=== PATIENT | female | born 1980 ===

== ENCOUNTER → 2020-12-11 08:31 | Outpatient (BNVA) | payer OTHER, SELFPAY | PROVIDERS: PCP Internal Medicine; Visit Provider Physician Assistant | DX: E66.01 Morbid (severe) obesity due to excess calories (principal); Z68.41 Body mass index [BMI] 40.0-44.9, adult; I10 Essential (primary) hypertension; Z71.3 Dietary counseling and surveillance | CPT/HCPCS: 99202 ==

== ENCOUNTER → 2020-12-13 15:49 | Outpatient (BNVA) | payer OTHER, SELFPAY | PROVIDERS: PCP Internal Medicine; Referring Provider Internal Medicine; Visit Provider Physician Assistant | DX: E66.01 Morbid (severe) obesity due to excess calories (principal); I10 Essential (primary) hypertension; Z68.41 Body mass index [BMI] 40.0-44.9, adult | CPT/HCPCS: 99212 ==

== ENCOUNTER 2020-12-18 10:59 | Outpatient (REF) | payer OTHER, SELFPAY ==
[2020-12-18 11:53] LABS: MANUAL DIFF FLAG NO
[2020-12-18 12:04] LABS: Basophils Percent Auto 0.7 % (0-2); Eosinophils Absolute Auto 0.2 X10*3/uL (0.0-0.4); Eosinophils Percent Auto 3.6 % (0-4); Hemoglobin 12.6 g/dl (12.0-16.0); Imm Gran Abs Auto 0.02 X10*3/uL (0.00-0.03); Imm Gran Pct Auto 0.3 % (0.0-0.4); Lymphocytes Absolute Auto 1.5 X10*3/uL (1.2-4.9); Mean Corpuscular HGB Conc 32.3 g/dl (31.0-35.0); Mean Corpuscular Hemoglobin 27.9 pg (27.0-33.0); Mean Corpuscular Volume 86.5 fL (80-98); Mean Platelet Volume 9.7 fL (9.4-12.3); Monocytes Absolute Auto 0.6 X10*3/uL (0.1-1.2); Monocytes Percent Auto 10.2 % (2-11); Neutrophils Absolute Auto 3.4 X10*3/uL (2.0-8.3); Neutrophils Percent Auto 59.2 % (45-73); Platelet Count 231 X10*3/uL (160-400); Red Blood Count 4.51 X10*6/uL (4.20-5.50); Red Cell Distribution Width 13.9 % (11.0-16.0); White Blood Count 5.8 X10*3/uL (4.8-10.8)
[2020-12-18 12:16] LABS: Estimated Average Glucose 111 mg/dL; Hemoglobin A1c % 5.5 %
[2020-12-18 12:39] LABS: Ferritin 20 ng/mL (10-250); TSH reflex Free T4 1.47 uIU/mL (0.32-4.0); Vitamin D 25-OH Total 23.5 ng/mL (>30)
[2020-12-18 12:41] LABS: Alanine Aminotransferase 21 U/L (0-31); Albumin Level 4.4 g/dL (3.5-5.0); Alkaline Phosphatase 73 U/L (39-117); Anion Gap 11 (12-20); Aspartate Amino Transferase 21 U/L (5-31); Bilirubin Total 0.5 mg/dL (0.0-1.0); Blood Urea Nitrogen 20 mg/dL (9-16); C Reactive Protein 1.15 mg/dL (< or = 0.50); Calcium 9.1 mg/dL (8.4-10.2); Carbon Dioxide 24 mmol/L (22-29); Chloride 107 mmol/L (96-108); Cholesterol 184 mg/dL; Estimated Glomerular Filt Rate > 60; Glucose Fasting 77 mg/dL (60-99); HDL Cholesterol 42 mg/dL; Iron 58 mcg/dL (30-160); LDL Cholesterol Calculated 128 mg/dl; Percent Iron Saturation 15 % (15-50); Potassium 4.3 mmol/L (3.3-5.1); Sodium 138 mmol/L (135-145); Total Iron Binding Capacity 398 mcg/dL (228-428); Total Protein 7.4 g/dL (6.5-8.0); Triglycerides 71 mg/dL; Unsaturated Iron Binding 340 ug/dL
[2020-12-18 13:00] LABS: Folate 18.6 ng/mL (> or = 4.0); Vitamin B12 1751 pg/mL (200-900)
[2020-12-19 09:47] LABS: Insulin Level Total 5.4 uIU/mL
[2020-12-19 16:41] LABS: Calcium (PTHI) 9.2 mg/dL (8.6-10.2); PTHI 86 pg/mL (14-64)
[2020-12-20 16:52] LABS: Zinc 92 mcg/dL (60-130)
[2020-12-23 09:26] LABS: Vitamin A 36 mcg/dL (38-98)
[2020-12-23 10:41] LABS: Vitamin B1 7 nmol/L (8-30)
== END 2020-12-18 11:00 | disposition home or self-care (01) ==
LOC: HO.LAB 10:59
PROVIDERS: PCP Internal Medicine; Visit Provider Physician Assistant
DX: E66.01 Morbid (severe) obesity due to excess calories (principal); Z68.41 Body mass index [BMI] 40.0-44.9, adult; I10 Essential (primary) hypertension; R06.02 Shortness of breath
CPT/HCPCS: 36415; 80053; 80061; 82306; 82607; 82728; 82746; 83036; 83525; 83540; 83970; 84425; 84443; 84590; 84630; 85025; 86140

== ENCOUNTER → 2020-12-19 08:16 | Outpatient (BNVA) | payer OTHER, SELFPAY | PROVIDERS: PCP Internal Medicine; Visit Provider Surgery ==

== ENCOUNTER 2020-12-20 09:22 | Outpatient (REF) | payer OTHER, SELFPAY ==
--- NOTE | ~2020-12-20 | XR_ITS ---
EXAMINATION: XR CHEST CLINICAL INFORMATION: Morbid obesity COMPARISON: None TECHNIQUE: 2 views of the chest were obtained. FINDINGS: No significant abnormality is noted involving the heart, lungs, mediastinum, bony thorax or soft tissues. XR/XR chest 2V IMPRESSION: No acute disease.
--- NOTE | 2020-12-20 09:29 | ECG_ITS ---
Test Reason : MORBID OBESITY Blood Pressure : / mmHG Vent. Rate : 081 BPM Atrial Rate : 081 BPM P-R Int : 148 ms QRS Dur : 090 ms QT Int : 390 ms P-R-T Axes : 055 003 014 degrees QTc Int : 453 ms Normal sinus rhythm Normal ECG No previous ECGs available Referred By: Lesvia Worley Electronically Signed By:CHANDU RUIZ
[2020-12-20 10:24] LABS: Estimated Average Glucose 111 mg/dL; Hemoglobin A1c % 5.5 %
[2020-12-20 10:51] LABS: Alanine Aminotransferase 24 U/L (0-31); Albumin Level 4.6 g/dL (3.5-5.0); Alkaline Phosphatase 75 U/L (39-117); Anion Gap 14 (12-20); Aspartate Amino Transferase 26 U/L (5-31); Bilirubin Total 0.5 mg/dL (0.0-1.0); Blood Urea Nitrogen 16 mg/dL (9-16); C Reactive Protein 1.43 mg/dL (< or = 0.50); Calcium 9.7 mg/dL (8.4-10.2); Carbon Dioxide 23 mmol/L (22-29); Chloride 108 mmol/L (96-108); Cholesterol 188 mg/dL; Estimated Glomerular Filt Rate > 60; Glucose Fasting 85 mg/dL (60-99); HDL Cholesterol 42 mg/dL; Iron 44 mcg/dL (30-160); LDL Cholesterol Calculated 130 mg/dl; Percent Iron Saturation 11 % (15-50); Sodium 140 mmol/L (135-145); Total Iron Binding Capacity 394 mcg/dL (228-428); Total Protein 7.6 g/dL (6.5-8.0); Triglycerides 81 mg/dL; Unsaturated Iron Binding 350 ug/dL
[2020-12-20 11:13] LABS: Ferritin 21 ng/mL (10-250); TSH reflex Free T4 1.43 uIU/mL (0.32-4.0); Vitamin D 25-OH Total 24.1 ng/mL (>30)
[2020-12-20 11:41] LABS: Folate 17.7 ng/mL (> or = 4.0); Vitamin B12 > 2000 pg/mL (200-900)
[2020-12-21 17:57] LABS: Calcium (PTHI) 9.5 mg/dL (8.6-10.2); PTHI 84 pg/mL (14-64)
== END 2020-12-20 09:23 | disposition home or self-care (01) ==
LOC: HO.LAB 09:22
PROVIDERS: PCP Internal Medicine; Visit Provider Physician Assistant
DX: E66.01 Morbid (severe) obesity due to excess calories (principal); R06.02 Shortness of breath; I10 Essential (primary) hypertension
CPT/HCPCS: 36415; 71046; 80053; 80061; 82306; 82607; 82728; 82746; 83036; 83525; 83540; 83970; 84443; 86140; 93005

== ENCOUNTER 2020-12-24 15:00 | Outpatient (REF) | payer OTHER, SELFPAY ==
[2020-12-25 14:11] LABS: H Pylori Breath Test NOT DETECTED (NOT DETECTED)
== END 2020-12-24 15:01 | disposition home or self-care (01) ==
LOC: HO.LNP 15:00
PROVIDERS: Physician Assistant; PCP Internal Medicine; Visit Provider Surgery
DX: I10 Essential (primary) hypertension (principal); R06.02 Shortness of breath; E66.01 Morbid (severe) obesity due to excess calories; Z68.41 Body mass index [BMI] 40.0-44.9, adult
CPT/HCPCS: 83013; 99211

== ENCOUNTER → 2021-01-09 08:26 | Outpatient (BNVA) | payer OTHER, SELFPAY | PROVIDERS: PCP Internal Medicine; Visit Provider Surgery ==

== ENCOUNTER 2021-01-10 08:09 | Outpatient (REF) | payer OTHER, SELFPAY ==
--- NOTE | ~2021-01-10 | FL_ITS ---
EXAMINATION: XR GI SERIES CLINICAL INFORMATION: Morbid obesity. COMPARISON: None TECHNIQUE: Air-contrast upper GI examination. FINDINGS: There is normal elevation of the soft palate while saying candy. There is normal apposition of the vocal cords while saying E. Patient swallowed thin and thick barium without difficulty. Half-inch diameter barium tablet passed readily. There is no evidence of nasopharyngeal reflux or tracheal aspiration. No Zenker's diverticulum. There is normal esophageal motility. No persistent esophageal stricture was identified. No mucosal abnormality was seen. There is a small hiatal hernia present. There was mild gastroesophageal reflux within the distal third of the esophagus with water siphon test which cleared rapidly. The stomach demonstrates normal distensibility without focal mass or ulceration. There was no delay in gastric emptying. The duodenal bulb and sweep appeared unremarkable. FLUOROSCOPY TIME: 2.2 minutes DOSE AREA PRODUCT: 19.937 Gy-cm2 (fregoso-centimeter squared) FL/FL upper GI series IMPRESSION: Mild gastroesophageal reflux within the distal third of the esophagus. Small hiatal hernia.
--- NOTE | ~2021-01-10 | US_ITS ---
EXAMINATION: US COMPLETE ABDOMEN WITH LIVER ELASTOGRAPHY CLINICAL INFORMATION: Morbid obesity COMPARISON: None. TECHNIQUE: Real-time imaging of the abdominal viscera. Noninvasive ultrasound liver fibrosis assessment is performed using Shannon ElastPQ point quantification shear wave elastography (pSWE) with a C5-2 MHz transducer. Multiple elastography samples are obtained. FINDINGS: PANCREAS: Normal. The visualized pancreatic head and body are normal in appearance. The remainder of the pancreas is obscured from visualization by the overlying bowel gas. ABDOMINAL AORTA: The proximal, middle, and distal aortic segments are normal in caliber. INFERIOR VENA CAVA: Visualized portions are normal. LIVER: Normal. The liver demonstrates normal size, contour and echogenicity. No focal lesion or intrahepatic biliary duct dilatation. The right lobe measures 16.3 cm in length. The left lobe measures 9.5 cm in length. Portal flow is hepatopedal Shear wave liver elastography median stiffness is 1.35 m/s (reference: normal median stiffness is 1.3 m/s or less). IQR/median stiffness to assess sampling precision is 0.10 (reference: good quality data set is IQR/median stiffness of 0.15 or less). GALLBLADDER: The gallbladder is physiologically distended. Gallbladder sludge present. No gallbladder wall thickening or pericholecystic fluid is identified. COMMON BILE DUCT: Normal in caliber measuring 0.3 cm in diameter. RIGHT KIDNEY: Normal. No hydronephrosis. No renal calculi or focal parenchymal lesions. The kidney measures 11.9 cm in maximum dimension. LEFT KIDNEY: Normal. No hydronephrosis. No renal calculi or focal parenchymal lesions. The kidney measures 11.2 cm in maximum dimension. SPLEEN: Normal. The spleen measures 11.9 cm in maximum dimension. FREE FLUID: None. US/US abdomen comp w elastography IMPRESSION: 1. Gallbladder sludge without evidence of acute cholecystitis. 2. Liver elastography: In the absence of other known clinical signs, measurements rule out compensated advanced chronic liver disease. If there are known clinical signs, further testing may be needed for confirmation. REFERENCE: Society of Radiologists in Ultrasound Liver Stiffness Thresholds (2019): LIVER STIFFNESS THRESHOLDS: *Liver Stiffness equal or less than 1.3 m/s: High probability of being normal. *Liver Stiffness less than 1.7 m/s: In the absence of other known clinical signs, rules out compensated advanced chronic liver disease. *Liver Stiffness 1.7-2.1 m/s: Suggestive of compensated advanced chronic liver disease but need further test for confirmation. *Liver Stiffness over 2.1 m/s: Rules in compensated advanced chronic liver disease. *Liver Stiffness over 2.4 m/s: Suggestive of clinically significant portal hypertension. QUALITY OF DATA SET: *IQR/Median value equal or less than 0.15 implies a quality data set. *IQR/Median value over 0.15 implies a poor quality data set. SIGNIFICANT CHANGE FROM PRIOR EXAM: Significant change if liver stiffness measurement is 10% or greater from prior exam. OTHER CONSIDERATIONS: The stage of liver fibrosis may be overestimated in the setting of acute hepatitis, liver inflammation, elevated liver function tests, hepatic vascular congestion, obstructive cholestasis, non-fasting state, and infiltrative diseases such as amyloidosis and lymphoma. In some patients with NAFLD, the liver stiffness thresholds for compensated advanced chronic liver disease may be lower. In causes other than viral hepatitis and NAFLD, liver stiffness thresholds are not well established.
== END 2021-01-10 08:10 | disposition home or self-care (01) ==
LOC: HO.US 08:09
PROVIDERS: PCP Internal Medicine; Visit Provider Surgery
DX: Z01.818 Encounter for other preprocedural examination (principal); E66.01 Morbid (severe) obesity due to excess calories; Z68.41 Body mass index [BMI] 40.0-44.9, adult; K21.9 Gastro-esophageal reflux disease without esophagitis; R06.02 Shortness of breath
CPT/HCPCS: 74240; 76705; 76981

== ENCOUNTER → 2021-01-16 08:24 | Outpatient (BNVA) | payer OTHER, SELFPAY | PROVIDERS: PCP Internal Medicine; Visit Provider Dietitian, Registered | DX: E66.9 Obesity, unspecified (principal); Z68.41 Body mass index [BMI] 40.0-44.9, adult | CPT/HCPCS: 97802 ==

== ENCOUNTER → 2021-01-24 10:22 | Outpatient (BNVA) | payer OTHER, SELFPAY | PROVIDERS: PCP Internal Medicine; Referring Provider Internal Medicine; Visit Provider Physician Assistant ==

== ENCOUNTER → 2021-01-31 07:53 | Outpatient (BNVA) | payer OTHER, SELFPAY | PROVIDERS: PCP Internal Medicine; Visit Provider Surgery ==

== ENCOUNTER → 2021-03-06 07:49 | Outpatient (BNVA) | payer OTHER, SELFPAY | PROVIDERS: PCP Internal Medicine; Visit Provider Surgery ==

== ENCOUNTER → 2021-03-08 08:55 | Outpatient (BNVA) | payer OTHER, SELFPAY | PROVIDERS: PCP Internal Medicine; Referring Provider Internal Medicine; Visit Provider Physician Assistant ==

== ENCOUNTER 2021-03-13 19:43 | Inpatient (IN) | payer OTHER, SELFPAY ==
[2021-02-27 11:23] VITALS: BMI 39.3
[2021-03-08 11:49] LABS: MANUAL DIFF FLAG NO
[2021-03-08 11:54] LABS: Basophils Percent Auto 0.7 % (0-2); Eosinophils Absolute Auto 0.3 X10*3/uL (0.0-0.4); Eosinophils Percent Auto 4.3 % (0-4); Hematocrit 40.9 % (37-47); Hemoglobin 13.3 g/dl (12.0-16.0); Imm Gran Abs Auto 0.01 X10*3/uL (0.00-0.03); Imm Gran Pct Auto 0.2 % (0.0-0.4); Lymphocytes Absolute Auto 1.2 X10*3/uL (1.2-4.9); Lymphocytes Percent Auto 19.5 % (20-40); Mean Corpuscular HGB Conc 32.5 g/dl (31.0-35.0); Mean Corpuscular Hemoglobin 28.1 pg (27.0-33.0); Mean Corpuscular Volume 86.5 fL (80-98); Mean Platelet Volume 9.9 fL (9.4-12.3); Monocytes Absolute Auto 0.6 X10*3/uL (0.1-1.2); Neutrophils Absolute Auto 4.1 X10*3/uL (2.0-8.3); Neutrophils Percent Auto 66.3 % (45-73); Platelet Count 224 X10*3/uL (160-400); Red Blood Count 4.73 X10*6/uL (4.20-5.50); Red Cell Distribution Width 14.5 % (11.0-16.0); White Blood Count 6.1 X10*3/uL (4.8-10.8)
[2021-03-08 11:59] LABS: INTERNATIONAL NORM RATIO 1.1 (0.9-1.1); Prothrombin Time 12.4 SEC (9.9-13.0)
[2021-03-08 12:01] LABS: Partial Thromboplastin Time 35.4 SEC (24.1-38.0)
[2021-03-08 12:12] LABS: Estimated Average Glucose 105 mg/dL; Hemoglobin A1c % 5.3 %
[2021-03-08 12:38] LABS: TSH reflex Free T4 1.33 uIU/mL (0.32-4.0)
[2021-03-08 12:56] LABS: Alanine Aminotransferase 13 U/L (0-31); Albumin Level 4.3 g/dL (3.5-5.0); Alkaline Phosphatase 62 U/L (39-117); Anion Gap 15 (12-20); Aspartate Amino Transferase 17 U/L (5-31); Bilirubin Total 0.5 mg/dL (0.0-1.0); Blood Urea Nitrogen 13 mg/dL (9-16); C Reactive Protein 0.68 mg/dL (< or = 0.50); Calcium 9.7 mg/dL (8.4-10.2); Carbon Dioxide 20 mmol/L (22-29); Chloride 109 mmol/L (96-108); Cholesterol 169 mg/dL; Estimated Glomerular Filt Rate > 60; Glucose Random 93 mg/dL (60-115); HDL Cholesterol 42 mg/dL; LDL Cholesterol Calculated 113 mg/dl; Potassium 4.5 mmol/L (3.3-5.1); Sodium 139 mmol/L (135-145); Total Protein 7.2 g/dL (6.5-8.0); Triglycerides 73 mg/dL
[2021-03-09 10:02] LABS: Insulin Level Total 6.8 uIU/mL
--- NOTE | 2021-03-13 19:41 | MHC.SHP ---
Pre-Procedural Eval Section A Date of Service: 03/13/21 The patient is an INPATIENT: Yes Changes since office visit: No Cold of Flu in the past 2 weeks, No New Medical Problems, No Changes in Medication and No Patient answered all questions Section B Chief Complaint: Morbid Severe Obesity Relevant Family History (Specify if Yes): No Relevant Social History: None Present Medications: see Short Stay Collaborative assessment Medical History: No relevant PMH History of Previous Operations: No relevant previous surgery Allergies: Allergies Allergy/AdvReac Type Severity Reaction Status Date / Time No Known Allergies Allergy Verified 12/19/20 14:50 Review of Systems Sugical H&P ROS: Negative: Constitution, Cardiovascular, Respiratory, Neurological, Psychiatric, Hem-Onc, Allergic/Immunologic, Gastrointestinal, Genitourinary, Musculoskeletal, Integumentary, Endocrine and Eyes/Ears/Nose/Throat Exam Surgical H&P Exam: Normal: HEENT, Normal: Heart, Normal: Lungs, Normal: Extremities, Normal: Abdomen, Normal: Skin and Normal: Neurological Plan I have reviewed the history and physical and performed a pertinent physical examination on my patient. No changes have occurred unless specified.
[2021-03-14] VITALS (11 sets, daily range): BP systolic 123–159; BP diastolic 81–105; PULSE 70–113; RESP 14–18; TEMP 35.9–36.7; O2SAT 96–100
[2021-03-14 12:06] LABS: COVID-19 Test Negative (Negative)
--- NOTE | 2021-03-14 12:23 | P.CONAN_ITS ---
HPI - Anesthesia Eval Consult details Narrative: 40 yo female patient for sleeve gastrectomy PMFSH Active Problems Active Problems: All Active Problems (Updated 02/27/21 @ 11:27 by Sagrario Bloom) Adjustment disorder, unspecified (Acute) Shortness of breath (Acute) Back pain (Acute) Morbid obesity (Acute) BMI 40.0-44.9, adult (Acute) Hypertension (Acute) Past Medical History Medical History (Updated 03/14/21 @ 13:38 by oDnnell Acosta MD) Arthritis Back pain BMI 40.0-44.9, adult Diaphragmatic hernia GERD (gastroesophageal reflux disease) Hypertension Morbid obesity Shortness of breath Family History Family History Mother Diabetes Hypertension Pulmonary emphysema Father Thyroid condition Hypertension Sister No problems noted. Sister No problems noted. Brother No problems noted. Son No problems noted. Son No problems noted. Family history of problems with anesthesia: No Surgical History Surgical History Hx of section Hx of tubal ligation History of Problems with Anesthesia: No Social History Social History Are you a primary transitional care manager to a significant other at home: No Do you presently have visiting nurse or other home services: No Alcohol intake: never Patient Tobacco Use Status: Never used Tobacco Use of substances other than those prescribed or required for medical reasons: No Have you been hit, kicked, punched, or otherwise hurt by someone within the past year? If so, by whom?: No Are you DNR?: No Advance Directives: No Advance Directives Information Provided: Yes (does not have official HCP) Advance Directives on File: No Recently lost weight without trying: No Eating poorly because of decreased appetite: No Nutrition Risks: No Nutritional Risk Patient : No FDLMP: 02/06/21 : No Poor oral hygiene: No Meds Allergies Allergy/AdvReac Type Severity Reaction Status Date / Time No Known Allergies Allergy Verified 03/14/21 11:40 Active Medications: Current Medications Generic Name Dose Route Start Last Admin Trade Name Freq PRN Reason Stop Dose Admin Lactated Ringer's 1,000 mls @ 100 mls/hr 03/14/21 12:30 Lr IVCONT .Q10H RO Acetaminophen 1,000 mg in 100 mls @ 400 mls/hr 03/14/21 12:21 Ofirmev IV 03/14/21 12:35 PREOP ONE Home Medications Medication Instructions Recorded Confirmed Last Taken Type ergocalciferol (vitamin D2) 1,250 1,250 mcg PO QWEEK 12/11/20 03/06/21 Unknown History mcg (50,000 unit) capsule mecobalamin (vitamin B12) 5,000 5,000 mcg PO DAILY 12/11/20 03/06/21 Unknown History mcg lozenge Exam Exam Date and Time: March 14, 2021 1223 Height,Weight and Vital Signs: Height 4 ft 11.5 in Weight 89.811 kg Vital Signs Temp Pulse Resp BP Pulse Ox 03/14/21 12:18 97.9 F 77 16 137/90 H 99 Pertinent Lab Results Pertinent Lab Results: Laboratory Tests 03/08/21 03/08/21 03/08/21 11:17 11:17 11:17 WBC 6.1 RBC 4.73 Hgb 13.3 Hct 40.9 MCV 86.5 MCH 28.1 MCHC 32.5 RDW 14.5 Plt Count 224 MPV 9.9 Immature Gran % (Auto) 0.2 Neut % (Auto) 66.3 Lymph % (Auto) 19.5 L Alexander % (Auto) 9.0 Eos % (Auto) 4.3 H Baso % (Auto) 0.7 Lymph # (Auto) 1.2 Alexander # (Auto) 0.6 Eos # (Auto) 0.3 Baso # (Auto) 0.0 Abs Immat Gran (auto) 0.01 Absolute Neuts (auto) 4.1 Absolute Nucleated RBC 0.000 Nucleated RBC % (auto) 0.0 PT 12.4 INR 1.1 APTT 35.4 Sodium 139 Potassium 4.5 Chloride 109 H Carbon Dioxide 20 L Anion Gap 15 BUN 13 Creatinine 0.73 Estim Creat Clear Calc 100.0 Estimated GFR > 60 Random Glucose 93 Estimat Average Glucose Hemoglobin A1c % Total Insulin Calcium 9.7 Total Bilirubin 0.5 AST 17 ALT 13 Alkaline Phosphatase 62 C-Reactive Protein 0.68 H Total Protein 7.2 Albumin 4.3 Triglycerides 73 Cholesterol 169 LDL Cholesterol, Calc 113 HDL Cholesterol 42 TSH 1.33 COVID-19 (REGINO) COVID-19 Clin Com Blood Type Antibody Screen 03/08/21 03/08/21 03/08/21 11:17 11:17 11:17 WBC RBC Hgb Hct MCV MCH MCHC RDW Plt Count MPV Immature Gran % (Auto) Neut % (Auto) Lymph % (Auto) Alexander % (Auto) Eos % (Auto) Baso % (Auto) Lymph # (Auto) Alexander # (Auto) Eos # (Auto) Baso # (Auto) Abs Immat Gran (auto) Absolute Neuts (auto) Absolute Nucleated RBC Nucleated RBC % (auto) PT INR APTT Sodium Potassium Chloride Carbon Dioxide Anion Gap BUN Creatinine Estim Creat Clear Calc Estimated GFR Random Glucose Estimat Average Glucose 105 Hemoglobin A1c % 5.3 Total Insulin 6.8 Calcium Total Bilirubin AST ALT Alkaline Phosphatase C-Reactive Protein Total Protein Albumin Triglycerides Cholesterol LDL Cholesterol, Calc HDL Cholesterol TSH COVID-19 (REGINO) COVIDmParticle Blood Type A Negative Antibody Screen NEGATIVE 03/14/21 11:40 WBC RBC Hgb Hct MCV MCH MCHC RDW Plt Count MPV Immature Gran % (Auto) Neut % (Auto) Lymph % (Auto) Alexander % (Auto) Eos % (Auto) Baso % (Auto) Lymph # (Auto) Alexander # (Auto) Eos # (Auto) Baso # (Auto) Abs Immat Gran (auto) Absolute Neuts (auto) Absolute Nucleated RBC Nucleated RBC % (auto) PT INR APTT Sodium Potassium Chloride Carbon Dioxide Anion Gap BUN Creatinine Estim Creat Clear Calc Estimated GFR Random Glucose Estimat Average Glucose Hemoglobin A1c % Total Insulin Calcium Total Bilirubin AST ALT Alkaline Phosphatase C-Reactive Protein Total Protein Albumin Triglycerides Cholesterol LDL Cholesterol, Calc HDL Cholesterol TSH COVID-19 (REGINO) Negative COVID-19 Pump! See Note Blood Type Antibody Screen Airway Mallampati Class: II TM Dist: >3cm Neck ROM: Full Heart: RRR Lungs: CTAB Assessment and Plan Assessment Anesthesia Assessment: Anesthesia Plan Discussed and Chart Reviewed Final Anesthetic Review Family History of Problems with Anesthesia: No History of Problems with Anesthesia: No NPO: Yes ASA Class: III Final Preanesthetic Review: No Changes in Pt Med Stat, Meds/Allgs Chart Reviewed, Consent Obtained/Reviewed and Anes Risks/Benef Reviewed Patient Risk: Intermediate Procedure Risk: Intermediate Assessment/Block/Sedation in SS: Assess/Block/Sedation-SS Anesthetic Plan Anesthetic Plan: GA Disposition: Standard PACU and Inp. Admit - Standard Bed
[2021-03-14] MEDS: Lactated Ringers 1,000 ML 100 ML IVCONT (12:28)
[2021-03-14] MEDS: Lactated Ringers 1,000 ML 999 ML IV (12:28)
--- NOTE | 2021-03-14 13:33 | P.BOP_ITS ---
Brief Operative Note Date of Service: 03/14/21 Pre-op diagnosis: Severe obesity with comorbidities (see below) Post-op diagnosis: same Procedure: INITIAL PATIENT BMI ON PRESENTATION AT OUR OFFICE: 45.3 kg/m2 LAST BMI BEFORE SURGERY: 38.3 kg/m2 COMORBIDITIES: Hypertension, GERD, diaphragmatic hernia, back pain The patient participated in an intensive weekly lifestyle ?intervention and exercise program during which the patient ?has lost between the initial office visit and the last preoperative visit 33lbs, or 14.46% of initial actual body weight. The patient met the BMI-criteria for bariatric surgery based on the BMI on initial presentation. The patient should not be penalized for achieving such weight loss because ?it is not sustainable long-term without surgical intervention and it was achieved in preparation for bariatric surgery ?under my direction and based on my published research ([email or web address] and? [email or web address]-[email or web address]/pdf ) ?that a 10% preoperative weight loss improves long-term weight loss after surgery and reduces perioperative complications.? Insurance carriers such as [facility] have endorsed my recommendations ?and have included in their policies criteria to include a 10% preoperative weight loss requirement. PROCEDURE: Esophago-gastroscopy, laparoscopic sleeve gastrectomy and laparoscopic gastropexy INDICATIONS: This is a 40 year-old female who was electively scheduled for laparoscopic, possibly open sleeve gastrectomy. The risks and complications of the procedure were discussed with the patient in advance, particularly the possibility of ; pulmonary embolism; staple line leak; bleeding; GERD; cardiac, pulmonary, or renal complications; as well as long-term problems such as insufficient weight loss, vitamin deficiency, strictures, or ulcers. The patient understood all the risks, and was in agreement to proceed with surgery. DESCRIPTION OF PROCEDURE: After informed consent was obtained from the patient, the patient was given preoperative antibiotics, and was transferred to the operating room. After successful induction of general anesthesia, pneumatic compressive devices were placed on both lower extremities. An upper endoscopy was performed next. The oropharynx and esophagus appeared to be within normal limits. There was no diaphragmatic hernia present. The stomach was entered. Then after all fluid and air were suctioned and the stomach was fully decompressed, the scope was withdrawn and secured in the mid esophagus. The patient was then prepped and draped in the usual sterile manner, and abdominal access was established at the right upper quadrant with the Ayana technique. A 12 mm blunt port was inserted, and the abdomen was insufflated with CO2 to a pressure of 15 mmHg. Under direct visualization, additional ports were placed, specifically two 5 mm Versi-step ports to the left upper quadrant, and a 5 mm Versi-Step port to the right upper quadrant. 1% lidocaine plain was used to infiltrate all port sites as well as all fascia defects. Following that, the patient was placed in a steep reverse Trendelenburg position. An additional 5 mm port was placed to the right flank for the Mediflex retractor that was used to retract the left lobe of the liver. The gastro-esophageal fat pad was opened with the ultrasonic device (Thunderbeat, Olympus) and the anterior esophagus and hiatus were exposed. The angle of His was opened with the ultrasonic device the fundus of the stomach from any diaphragmatic and splenic attachments. I then opened the gastrocolic ligament between the transverse colon and the greater curvature of the stomach with the ultrasonic device to enter the lesser sac and facilitate the ligation of the short gastric vessels. I started at a mid-point along the greater curvature and using the Thunderbeat, all short gastric vessels were divided all the way to the angle of His until the left rahul was completely dissected at its entirety. I then divided the gastro-colic ligament distally to a distance of about 3-4 cm proximal to the esophagus. The stomach was then divided transversely with one Endo HAROON-45 purple, 2 HAROON-45 orange and three HAROON-60 articulating purple loads using the AEON staplers and loads. Every effort was made that the gastric sleeve had a tubular shape and an even caliber throughout. Once the sleeve resection was completed, the staple line of the gastric sleeve was reinforced with Hemoclips. The resected stomach was retrieved without difficulty from the Ayana port. A gastropexy was then performed in order to prevent postoperative GERD and partial gastric volvulus. Several interrupted 2.0 Surgidac sutures were placed between the sleeve's staple line and the previously divided greater omentum and gastro-colic ligament using the Endo-Stitch device. ?An upper endoscopy was performed. There was no narrowing at the GE junction. The scope was easily advanced all the way to the pylorus which was clearly visualized. There was no narrowing anywhere and the sleeve's caliber was even throughout. The sleeve's staple line was inspected and there was no evidence of ischemia, bleeding or dehiscence. At that point the gastroscope was withdrawn from the patient?s mouth while we were decompressing the bowel and the stomach from any remaining air. I looked into the lesser sac to see how the sleeve was situating and it was situating well. There was no bleeding from the staple line, spleen, or short gastric vessels. The Mediflex retractor was removed, and the undersurface of the liver was inspected and there was no bleeding. The patient was placed in supine position. I closed the fascial defect of the 12 mm port site with a figure of eight #1 Polysorb suture. Then 100 cc 0.25 % Marcaine plain with 10 mg of Dexamethasone were used to infiltrate the fascial closure as well as all skin incisions. At this point, the abdomen was deflated, all ports were removed under direct vision, and no bleeding was noted from any of the port sites. The skin incisions were irrigated with saline and were closed with 4-0 absorbable monofilament sutures. Steri-Strips and OpSites were used to cover all incisions. The patient was extubated and was transferred in stable condition to the recovery room for further care. I was present and performed all werner parts of the procedure. Anastasia Montano was the team assistant. There were no residents to assist with this case. Matthew Acosta MD, PhD, FACS Surgeon: Donnell Acosta MD Anesthesia: GETA, local and other (TAP block) Was an Employee Representative used for this Procedure?: No Employee Representative: Desi Montano Estimated blood loss (mL): 10 IV fluids (mL): 2,200 Urine output (mL): 0 (No Quiñones to record) Pathology: other (Stomach) Condition: stable Disposition: PACU
--- NOTE | 2021-03-14 13:36 | PM.PNGS ---
Subjective Subjective Date of Service: 03/15/21 Interval history: Patient has mild incisional pain but was able to ambulate and use the incentive spirometer. Is toleratin phase 1 bariatric diet. Physical Exam Vital Signs: Vital Signs: Last Vital Signs Temp 97.9 F 03/14/21 12:18 Pulse 77 03/14/21 12:18 Resp 16 03/14/21 12:18 BP 137/90 H 03/14/21 12:18 Pulse Ox 99 03/14/21 12:18 Body Mass Index 39.3 GI: Inspection: Yes normal to inspection, Yes incision (clean, dry and intact) and Yes obesity Extrem: Right lower extremity: normal to inspection (no calf tenderness) Left lower extremity: normal to inspection (no calf tenderness) Procedures Date of Service Date of Service: 03/15/21 Progress Note: A&P Assessment and plan (1) Obesity: Status: Acute Assessment and Plan: s/p laparoscopic sleeve gastrectomy and gastropexy Doing well Check am labs. If OK, will discharge home. (2) BMI 38.0-38.9,adult: Status: Acute (3) Hypertension: Status: Acute (4) GERD (gastroesophageal reflux disease): Status: Acute (5) Diaphragmatic hernia: Status: Acute (6) Back pain: Status: Acute Fall Risk Details Current Medications: Current Medications Generic Name Dose Route Start Last Admin Trade Name Freq PRN Reason Stop Dose Admin Lactated Ringer's 1,000 mls @ 100 mls/hr 03/14/21 12:30 03/14/21 12:28 Lr IVCONT 100 mls/hr .Q10H RO Administration Time Spent With Patient Time: Total time spent is greater than 50% in coordination of care (as documented) at patient's floor/unit and/or counseling patient: Time with patient: less than 15 minutes Quality Stroke Does the patient have a stroke diagnosis?: No VTE Prior VTE?: No VTE Risk Level:: Surgical - moderate VTE Device Contraindication: N/A - Device Ordered VTE Drug Contraindication: Treatment Not Indicated
--- NOTE | 2021-03-14 16:00 | P.DS_ITS ---
DS: Providers Provider Date of Service: 03/15/21 Date of admission: 03/13/21 19:43 Primary care physician: Genie Madison MD DS: Diagnosis Discharge Diagnosis (1) Obesity: Status: Acute (2) BMI 38.0-38.9,adult: Status: Acute (3) Hypertension: Status: Acute (4) GERD (gastroesophageal reflux disease): Status: Acute (5) Diaphragmatic hernia: Status: Acute (6) Back pain: Status: Acute DS: Medications Discharge Medications Home Medications: Home Medications Medication Instructions Recorded Confirmed ergocalciferol (vitamin D2) 1,250 1,250 mcg PO QWEEK 12/11/20 03/06/21 mcg (50,000 unit) capsule mecobalamin (vitamin B12) 5,000 5,000 mcg PO DAILY 12/11/20 03/06/21 mcg lozenge Previous Rx's Medication Instructions Recorded ondansetron HCl 4 mg tablet 4 mg PO Q12H #20 tab 03/06/21 (Zofran) pantoprazole 40 mg tablet,delayed 40 mg PO DAILY #30 tab 03/06/21 release sucralfate 100 mg/mL oral 10 ml PO BID #400 ml 03/06/21 suspension DS: Summary Hospital Course Hospital Course: ADMITTING DIAGNOSIS: morbid obesity, HTN, arthritis DISCHARGE DIAGNOSIS: same, s/p laparoscopic sleeve gastrectomy PAST SURGICAL HISTORY: section, tubal ligation PROCEDURE: upper endoscopy, laparoscopic sleeve gastrectomy DISCHARGE SUMMARY: History of Present Illness: The patient is a 40 year-old woman with a BMI of 44.7 kg/m2 and associated co- morbidities as described above. The patient had extensive work-up,lost 33 lbs preoperatively and was electively scheduled for laparoscopic, possible open sleeve gastrectomy and gastropexy. Risks and complications of the surgery were discussed with the patient in advance, particularly the possibility of , pulmonary embolism, anastomotic leak, bleeding, bowel injury, GERD, cardiac, renal or pulmonary complications. The patient understood all the risks and was in agreement with the surgical plan. Hospital Course: The patient underwent an uneventful laparoscopic sleeve gastrectomy with gastropexy on the day of admission. Postoperatively, the patient was transferred to the surgical floor. The patient received IV Acetaminophen and IV dilaudid for pain control. Patient was started on bariatric phase 1 diet POD #0. On postoperative day one, the patient was feeling well without nausea, vomiting, fevers, or tachycardia. The patient had some mild incisional pain and the abdomen was soft. On the morning of postoperative day one, the patient was continued on 1 ounce of water or ice every half hour. During the day, the patient did fairly well, having some incisional pain, but able to ambulate adequately and to tolerate liquids well. Since the patient is doing well, we decided that the patient was ready to be dis charged. The patient was given instructions to follow-up with me next week and to call my office for any fever over 101, persistent abdominal pain, nausea, vomiting, GERD, symptoms of DVT such as calf tenderness, or leg swelling, or pulmonary embolism such as chest pain or shortness of breath. The patient was also instructed to drink 40-60 ounces of liquids per day using the 1-ounce cups. The patient had been given prescriptions for Tylenol for pain, Zofran prn for nausea, and pantoprazole and carafate previously. The patient was encouraged to ambulate and use the incentive spirometer. The patient was allowed to shower, but no baths, and encouraged to stay active at home. All of these instructions were given to the patient personally. All questions were answered and the patient understood all instructions, the instructions were also given to the patient in print. Time Spent with Patient Time attestation: Total time spent providing and/or coordinating discharge services: Discharge coordination time: Less than 30 minutes Quality: Stroke Does the patient have a stroke diagnosis?: No Physical Exam Vital Signs: Vital Signs: Last Vital Signs Temp 98.1 F 03/14/21 15:53 Pulse 80 03/14/21 15:53 Resp 14 03/14/21 15:53 BP 126/85 03/14/21 15:53 Pulse Ox 100 03/14/21 15:53 Body Mass Index 39.3 DS: Data Data Completed and Pending Pending studies at discharge: Pending at discharge 03/14/21 15:06 Surgical [PTH] Routine Labs on day of discharge: Laboratory Results - last 24 hr 03/14/21 11:40 COVID-19 ([facility]) Negative COVID-19 Clin Com See Note Discharge Plan Discharge Anticipated Discharge Date/Time: 03/15/21 11:58 Patient Disposition: Home, Self-Care Discharge Diagnosis: s/p sleeve gastrectomy Referrals: Genie Madison MD [Primary Care Provider] - 1 Week Discharge Medications: Continued pantoprazole 40 mg tablet,delayed release (DR/EC) 40 mg PO DAILY Qty: 30 RF: 2 sucralfate 100 mg/mL suspension 10 ml PO BID Qty: 400 RF: 2 ondansetron HCl [Zofran] 4 mg tablet 4 mg PO Q12H Qty: 20 RF: 0 Discontinued ergocalciferol (vitamin D2) 1,250 mcg (50,000 unit) capsule 1,250 mcg PO QWEEK RF: 0 mecobalamin (vitamin B12) 5,000 mcg lozenge 5,000 mcg PO DAILY RF: 0 Discharge Orders: Discharge Order (Routine); Ordered 03/15/21 Ordered By: Donnell Acosta Diet: other Activity on Discharge: No heavy lifting Stand Alone Forms: Patient Portal Discharge page Care Plan Goals: weight loss Health Concerns: morbid obesity Plan of Treatment: No tub baths, sex or returning to work until discussed at first post op appointment. No exercise, alcohol, tobacco or illegal drug use. Continue to use incentive spirometer hourly while awake. Walk in home for 5- 10 minutes every 2 hours during the first week. Continue phase 1 diet today and start phase 2 diet tomorrow morning. Follow all instructions in the bariatric handbook and call with any questions. The patient's medical history has been reviewed and they are considered low risk for post op DVT and therefore DVT prophylaxis is not considered necessary. Travel after surgery was reviewed. The patient has not disclosed any travel plans during the first 30 days after surgery and they have been advised that within the first 30 days after surgery any bus, plane, train or car travel over 2 hours in duration is contraindicated due to the possibility of developing blood clots from immobility. Any travel, needs to include periods of ambulation of 10 minutes in duration every 2 hours. The patient was instructed to discuss any plans for travel during this period with their bariatric surgeon. Assessment: stable, pod # 1 s/p sleeve gastrectomy
[2021-03-14] MEDS: Famotidine/PF 20 MG/2 ML VIAL IVPUSH (16:15)
[2021-03-14 16:35] LABS: Hematocrit 36.3 % (37-47)
[2021-03-14 17:07] LABS: Blood Urea Nitrogen 8 mg/dL (9-16); Estimated Glomerular Filt Rate > 60; Glucose Random 114 mg/dL (60-115)
[2021-03-14 17:19] LABS: Anion Gap 14 (12-20); Calcium 8.7 mg/dL (8.4-10.2); Carbon Dioxide 20 mmol/L (22-29); Chloride 110 mmol/L (96-108); Potassium 3.4 mmol/L (3.3-5.1); Sodium 141 mmol/L (135-145)
[2021-03-14] MEDS: Lactated Ringers 1,000 ML 125 ML IVCONT (17:48)
[2021-03-14] MEDS: 0.9 % Sodium Chloride Flush 3 ML SYRINGE IVFLUSH (20:47)
[2021-03-14] MEDS: Metoclopramide HCl 10 MG/2 ML VIAL IVPUSH (21:25)
[2021-03-15] MEDS: Lactated Ringers 1,000 ML 125 ML IVCONT (02:16)
[2021-03-15 03:10] VITALS: BP 119/85; PULSE 86; RESP 16; TEMP 36.8; O2SAT 97
[2021-03-15] MEDS: Famotidine/PF 20 MG/2 ML VIAL IVPUSH (05:41)
[2021-03-15 06:25] LABS: MANUAL DIFF FLAG NO
[2021-03-15 06:46] LABS: Hematocrit 38.6 % (37-47); Hemoglobin 12.8 g/dl (12.0-16.0); Imm Gran Abs Auto 0.02 X10*3/uL (0.00-0.03); Imm Gran Pct Auto 0.2 % (0.0-0.4); Lymphocytes Absolute Auto 0.6 X10*3/uL (1.2-4.9); Lymphocytes Percent Auto 7.5 % (20-40); Mean Corpuscular HGB Conc 33.2 g/dl (31.0-35.0); Mean Corpuscular Hemoglobin 28.3 pg (27.0-33.0); Mean Corpuscular Volume 85.2 fL (80-98); Mean Platelet Volume 10.2 fL (9.4-12.3); Monocytes Absolute Auto 0.3 X10*3/uL (0.1-1.2); Monocytes Percent Auto 3.8 % (2-11); Neutrophils Absolute Auto 7.2 X10*3/uL (2.0-8.3); Neutrophils Percent Auto 88.5 % (45-73); Platelet Count 268 X10*3/uL (160-400); Red Blood Count 4.53 X10*6/uL (4.20-5.50); Red Cell Distribution Width 14.5 % (11.0-16.0); White Blood Count 8.2 X10*3/uL (4.8-10.8)
[2021-03-15 07:04] LABS: Anion Gap 13 (12-20); Blood Urea Nitrogen 5 mg/dL (9-16); Calcium 9.3 mg/dL (8.4-10.2); Carbon Dioxide 22 mmol/L (22-29); Chloride 106 mmol/L (96-108); Creatinine Clr Calc Pharmacy 107.4; Estimated Glomerular Filt Rate > 60; Glucose Random 126 mg/dL (60-115); Potassium 4.2 mmol/L (3.3-5.1); Sodium 137 mmol/L (135-145)
[2021-03-15 07:59] VITALS: BP 134/87; PULSE 100; RESP 18; TEMP 37.1; O2SAT 97
--- NOTE | 2021-03-15 08:23 | MHC.CM.PN ---
PATIENT IS DISCHARGED HOME - SELF CARE. TRANSPORT ARRANGED BY PATIENT PRIOR TO PROCEDURE.
--- NOTE | 2021-03-15 08:24 | MHC.CM.PN ---
PATIENT IS DISCHARGED HOME - SELF CARE. RN AWARE OF PLAN.
--- NOTE | 2021-03-15 13:53 | HO.POSTANES ---
Post Anesthesia Evaluation Post Anesthesia Evaluation Vital Signs: Vital Signs Temp Pulse Resp BP Pulse Ox 03/15/21 07:59 98.7 F 100 18 134/87 97 03/15/21 03:10 98.2 F 86 16 119/85 97 Anesthesia: General Endotracheal-GETA Mental Status: Awake Pain Control: Satisfactory Nausea/Vomiting: None Hydration: Adequate Anesthesia-Related Issues: No Anes. Related Issues
== END 2021-03-15 12:12 | disposition home or self-care (01) | DRG 403 ==
LOC: HO.SSSA 03-14 16:00 → HO.S3 03-14 16:32
PROVIDERS: Physician Assistant; Admitting Provider Surgery; PCP Internal Medicine; Visit Provider Surgery
PROC: (CPT 43845; principal; 2021-03-14 12:50)
DX: E66.01 Morbid (severe) obesity due to excess calories (principal); K21.9 Gastro-esophageal reflux disease without esophagitis; Z68.38 Body mass index [BMI] 38.0-38.9, adult; Z20.822 Contact with and (suspected) exposure to COVID-19; Z79.899 Other long term (current) drug therapy
CPT/HCPCS: 36415; 80048; 80053; 80061; 83036; 83525; 84443; 85014; 85018; 85025; 85610; 85730; 86140; 86850; 86900; 86901; 87635; 88307; 88342; 99024; A4649; J0131; J0690; J1100; J1170; J2250; J2405; J2550; J2765

== ENCOUNTER → 2021-04-10 08:00 | Outpatient (BNVA) | payer OTHER, SELFPAY | PROVIDERS: PCP Internal Medicine; Referring Provider Internal Medicine; Visit Provider Surgery | DX: E66.01 Morbid (severe) obesity due to excess calories (principal); I10 Essential (primary) hypertension; Z68.34 Body mass index [BMI] 34.0-34.9, adult; Z90.3 Acquired absence of stomach [part of] | CPT/HCPCS: 99212 ==

== ENCOUNTER → 2021-05-13 07:43 | Outpatient (BNVA) | payer OTHER, SELFPAY | PROVIDERS: PCP Internal Medicine; Visit Provider Surgery | DX: K91.2 Postsurgical malabsorption, not elsewhere classified (principal); Z90.3 Acquired absence of stomach [part of] | CPT/HCPCS: 99212 ==

== ENCOUNTER → 2021-05-28 14:38 | Outpatient (BNVA) | payer OTHER, SELFPAY | PROVIDERS: PCP Internal Medicine; Referring Provider Surgery; Visit Provider Dietitian, Registered | DX: E66.9 Obesity, unspecified (principal); Z68.31 Body mass index [BMI] 31.0-31.9, adult; I10 Essential (primary) hypertension; K21.9 Gastro-esophageal reflux disease without esophagitis; Z90.3 Acquired absence of stomach [part of]; Z71.3 Dietary counseling and surveillance; Z93.1 Gastrostomy status | CPT/HCPCS: 97803 ==

== ENCOUNTER → 2021-06-21 08:22 | Outpatient (BNVA) | payer OTHER, SELFPAY | PROVIDERS: PCP Internal Medicine; Referring Provider Internal Medicine; Visit Provider Physician Assistant Surgical | DX: E66.9 Obesity, unspecified (principal); Z68.30 Body mass index [BMI] 30.0-30.9, adult | CPT/HCPCS: 99212 ==

== ENCOUNTER → 2022-12-11 11:00 | Outpatient (BNVA) | payer OTHER, SELFPAY | PROVIDERS: Visit Provider Physician Assistant Surgical | DX: E66.9 Obesity, unspecified (principal); Z90.3 Acquired absence of stomach [part of]; Z68.34 Body mass index [BMI] 34.0-34.9, adult | CPT/HCPCS: 99212 ==

== ENCOUNTER 2023-07-15 14:02 | Emergency (ER) | payer OTHER, SELFPAY | END 2023-07-15 17:50 | disposition left against medical advice (07) | LOC: HO.ED 17:36 | PROVIDERS: Emergency Provider Emergency Medicine; PCP Emergency Medicine | DX: R10.9 Unspecified abdominal pain (principal) ==

== ENCOUNTER 2024-12-01 09:36 | Outpatient (AMB) | payer OTHER, SELFPAY ==
--- NOTE | 2024-12-01 09:40 | A.OFFVIS_ITS ---
VS Expanded 12/01/24 09:45 BP 130/84 Blood Pressure Location Rt brachial Blood Pressure Position Sitting Pulse 84 Pulse Source Pulse Oximeter Temp 97.9 F Temperature Source Temporal Artery Scan Pulse Oximetry 97 Oxygen Delivery Method Room Air Height 4 ft 11.5 in Weight 165 lb 12.8 oz BMI 32.9 Body Fat % 40.3 Body Fat Mass 66.8 Fat Free Mass 99.0 Visceral Fat Rating 9.0 Body Water % 42.7 Body Water Mass 70.8 Muscle Mass/Score 94.0 Basal Metabolic Rate/Score 1,382 Intake Visit Reasons: OV PO LSG 03/14/21 *SEE COMMENTS* Allergies No Known Allergies Allergy (Verified 12/01/24 09:43) Medication List - Last Reconciled 12/01/24 by IVA Fuentes No Known Home Meds HPI Comments Details: This?is a?44?yo female who is s/p LSG 03/14/2021. Presents for 3 year 9mo post op visit. Has not been seen in 2yrs at which time her weight was 172.6lbs.? No complaints of nausea, emesis, abdominal pain or reflux, or constipation. Her goal weight is around 150lbs. She was able to achieve this in the past and felt comfortable here. In the last 4 weeks she has been successful with weight loss. Present meal plan includes: 2 eggs, 2 bell for breakfast with quarter avocado, or [employer] protein shake yogurt meats, sometimes a small portion of sweet potato but otherwise tries to keep carbs low tracks her intake on bariatric tracking dang no MVI Exercise routine includes: 30-40 min on bike 3-4x/week Pt reports problems of excess skin of abdomen. Sometimes gets rashes in the skin folds. Moisture collects in the skin folds and she has to clean frequently to prevent odor or skin breakdown. Skin is very heavy and pulls on her back/shoulders due to the weight of it. Tries to hold excess skin in place with compressive clothing to prevent movement of the excess skin when she is performing activities of daily living. Did the patient ever have any of these conditions and are they resolved or still being treated? GERD: never BUD: never DM: prediabetes- resolved HTN: resolved Hyperlipidemia: never Post op complications: none Heartburn symptoms? none Score 0-5: 0=no symptoms, 1=noticeable but not bothersome (slight or occasional), 2=noticeable, bothersome but not daily, 3=bothersome and daily, 4=affects daily activities, 5=incapacitating, unable to do daily activities How bad is the heartburn: 0 Heartburn when lying down: 0 Heartburn when standing up: 0 Heartburn after meals: 0 Does heartburn change your diet: 0 Does heartburn wake you up from sleep: 0 Do you have difficulty swallowin Do you have pain with swallowin If you take medication for reflux, does this affect your daily life: 0 Total score: 0 [facility] Medical History Arthritis Back pain BMI 38.0-38.9,adult BMI 40.0-44.9, adult Diaphragmatic hernia GERD (gastroesophageal reflux disease) Hypertension Morbid obesity Shortness of breath Surgical History History of sleeve gastrectomy Hx of tubal ligation Hx of section Family History Mother Diabetes Hypertension Pulmonary emphysema Father Thyroid condition Hypertension Sister No problems noted. Sister No problems noted. Brother No problems noted. Son No problems noted. Son No problems noted. Social History Are you a primary family member caretaker to a significant other at home: No Do you presently have visiting nurse or other home services: No Alcohol intake: never Patient Tobacco Use Status: Never used Tobacco service: No Current occupational status: employed Assessment & Plan Assessment & Plan (1) Obesity (BMI 30.0-34.9): Code(s): E66.9 - Obesity, unspecified Category: Medical (2) History of sleeve gastrectomy: Comment: 03/14/21- LSG Code(s): Z90.3 - Acquired absence of stomach [part of] Category: Surgical (3) Obesity: Code(s): E66.9 - Obesity, unspecified Category: Medical Plan Discussed protein goal of 65-70g/day. Pt is likely low many days, will work on increasing protein intake. Recommended one additional shake or bar per day. [employer] dang info via text. Clotrimazole ointment ordered for rashes of excess skin of abdomen. Labs ordered. RTC 2-3 months. Orders: Orders Hemoglobin A1c Today Z90.3 - Acquired absence of stomach [part of] IRON PROFILE Today Z90.3 - Acquired absence of stomach [part of] Vitamin B1 Today Z90.3 - Acquired absence of stomach [part of] Vitamin A Today Z90.3 - Acquired absence of stomach [part of] Ferritin Today Z90.3 - Acquired absence of stomach [part of] Insulin Today Z90.3 - Acquired absence of stomach [part of] Complete Blood Count Auto Diff Today Z90.3 - Acquired absence of stomach [part of] Lipid Panel Today Z90.3 - Acquired absence of stomach [part of] Comprehensive Met. Panel Today Z90.3 - Acquired absence of stomach [part of] Vitamin B12 and Folate Today Z90.3 - Acquired absence of stomach [part of] Zinc Today Z90.3 - Acquired absence of stomach [part of] C Reactive Protein Today Z90.3 - Acquired absence of stomach [part of] TSH reflex Free T4 Today Z90.3 - Acquired absence of stomach [part of] Vitamin D 25-OH Total Today Z90.3 - Acquired absence of stomach [part of] Medications: New clotrimazole 1% 1 appl topical BID 45 grams 3RF
[2024-12-01 09:45] VITALS: BP 130/84; PULSE 84; TEMP 36.6; O2SAT 97; BMI 32.9
--- OUTSIDE RECORDS SUMMARY | 2024-12-01 11:02 | XMS_ITS | Clinical Summary ---
Author Organization [facility] Address [address] [place] [address] Care Team Providers Care Manager Fixed Income Name Role Phone Germania Archibald MD Primary Care Provider [phone] Allergies No known active allergies Medications Medication Sig Dispensed Refills Start Date End Date Status pantoprazole (PROTONIX) 40 MG tablet Take 1 tablet (40 mg total) by mouth every morning on an empty stomach. 0 Active sucralfate (CARAFATE) 1 g tablet Take 1 tablet (1 g total) by mouth daily. 0 Active Norethin-Eth Estradiol-Fe 0.4-35 MG-MCG CHEW Chew by mouth. 0 Active ibuprofen 400 MG tablet Take 2 tablets (800 mg total) by mouth every 6 (six) hours as needed for pain. 0 Active Active Problems Problem Noted Date Diagnosed Date Iron deficiency anemia secon joel to inadequate dietary iron intake 03/21/2022 Social History Tobacco Use Types Packs/Day Years Used Date Smoking Tobacco: Never Smokeless Tobacco: Never Alcohol Use Standard Drinks/Week Comments Never 0 (1 standard drink = 0.6 oz pur e alcohol) Sex and Gender Information Value Date Recorded Sex Assigned at Female 04/01/2022 4:06 PM EDT Gender Identity Female 02/12/2023 2:41 PM EDT Sexual Orientation Straight 02/12/2023 2: 41 PM EDT Job Start Date Occupation Industry Not on file Not on file Not on file Last Filed Vital Signs Vital Sign Reading Time Taken Comments Blood Pressure 131/94 06/09/2024 11:51 AM EDT Pulse 77 06/09/2024 11:51 AM EDT Temperature 36.6 ??C (97.8 ??F) 06/09/2024 11:51 AM E DT Respiratory Rate 18 02/25/2024 4:05 PM EDT Oxygen Saturation 100% 06/09/2024 11:51 AM EDT Inhaled Oxygen Concentration - - Weight 83.6 kg (184 lb 6.4 oz) 06/09/2024 11:51 AM EDT Height 149.9 cm (4' 11 ) 06/09/2024 11:51 AM EDT Body Mass Index 37.24 06/09/2024 11:51 AM EDT Plan of Treatment Health Maintenance Due Date Last Done Comments Hepatitis B Vaccines (1 of 3 - 3-dose series) 1980 Hepatitis C Screening 1980 COVID-19 Vaccine (#1) 1980 Depression Screening 1992 BMI Counseling 1998 Preventative Health Evaluation 1998 Cervical Cancer Screening (Pap Smear) 2001 Influenza Vaccine (#1) 2024 DTap / Tdap / Td (3 - Td or Tdap) 02/12/2033 02/12/2023, 04/08/2012 Pneumococcal Vaccine Aged Out No long er eligible based on patient's age to complete this topic RSV Ped < 20 months Aged Out No longe r eligible based on patient's age to complete this topic Care Teams Manager Fixed Income Relationship Specialty Start Date End Date Germania Archibald MD PCP - General Internal Medicine 01/06/22
--- OUTSIDE RECORDS SUMMARY | 2024-12-01 11:02 | XMS_ITS | Clinical Summary ---
Author Organization [facility] Address [address] [place] [address] Phone Care Team Providers Care Director Of Programming Name Role Phone Patricia Harmon MD Primary Care Pr ovider Allergies No known active allergies Medications ibuprofen (ADVIL,MOTRIN) 400 mg tablet Take 2 tablets (800 mg total) by mouth every 6 (six) hours as needed for pain. Active Active Problems Problem Noted Date Diagnosed Date Primary hypertension 06/23/2024 Mixed hyperlipidemia 06/23/2024 Obesity (BMI 30.0-34.9) 06/23/2024 Prediabetes 06/23/2024 Osteoarthritis of lumbar spine with myelopathy 1 08/23/2023 Iron deficiency anemia secon joel to inadequate dietary iron intake 03/21/2022 Encounters Date Type Department Care Team Description 11/03/2024 11:15 AM EDT Office Visit Obstetrics and Gynecology - [address] [phone] Praveena Kumar CNM Encounter for annual routine gynecological examination (Primary Dx) 10/10/2024 10:38 AM EST - 10/10/2024 11:59 PM EST [facility] [address] [phone] Calcification of left breast Discharge Disposition: Home or Self Care 10/06/2024 7:37 AM EST - 10/06/2024 11:59 PM EST [facility] [address] [phone] Breast calcifications Discharge Disposition: Home or Self Care 10/06/2024 7:30 AM EST - 10/06/2024 11:59 PM EST Hospital [facility]counter [facility] [address] [phone] Breast calcifications Discharge Disposition: Home or Self Care 09/23/2024 8:00 AM EST - 09/23/2024 11:59 PM EST Hospital [facility]counter [facility] [address] [phone] Breast calcifications Discharge Disposition: Home or Self Care 09/15/2024 1:50 PM EST - 09/15/2024 11:59 PM EST [facility]counter [facility] [address] [phone] Encounter for screening mammogram for breast cancer Discharge Disposition: Home or Self Care from Last 3 Months Surgical History Surgery Date Site/Laterality Comments BARIATRIC SURGERY 02/14/2019 - 03/16/2019 US GUIDED BREAST BIOPSY LEFT 09/21/2024 Medical History Medical History Date Comments DDD (degenerative disc disease), lumbar DX:DDD (degenerative disc disease), lumbar Spinal stenosis of lumbar re gion without neurogenic claudication DX:Spinal stenosis of lumbar region without neurogenic claudication Atypical chest pain DX:Atypical chest pain Hypertension DX:Hypertension Depression DX:Depression Prediabetes DX:Prediabetes Microcytic anemia DX:Microcytic anemia Anxiety DX:Anxiety Scoliosis DX:Scoliosis Allergic rhinitis DX:Allergic rh initis Family History Medical History Relation Name Comments Cancer Cousin 1st cousin mom side unknown cancer Hypertension Father Hypertension Mother Breast cancer Neg Hx Colon cancer Neg Hx Ovarian cancer Neg Hx Relation Name Status Comments Cousin Alive Father Mother Social History Tobacco Use Types Packs/Day Years Used Date Smoking Tobacco: Never Smokeless Tobacco: Never Tobacco Cessation:Counseling Given: Not Answered Alcohol Use Standard Drinks/Week Comments Never 0 (1 standard drink = 0.6 oz pur e alcohol) Housing Instability Answer Date Recorde d Are you worried that in the next 2 months you may not have stable housing? No 11/03/2024 Food Access & Nutrition Answer Date Rec orded Do you have access to a vari ety of food including fruits and vegetables? Yes 11/03/2024 Access to Healthcare Answer Date Record ed Within the last 3 months, ho w many times did you visit the emergency department for your medical care? 1 11/03/2024 Health Literacy Answer Date Recorded How often do you need to hav e someone help you when you read instructions, pamphlets, or other written material from your doctor or pharmacy? Never 11/03/2024 Caregiver: How often do you need to have someone help you when you read instructions, pamphlets, or other written material from your doctor or pharmacy? Not on file 11/03/2024 Financial Risk Answer Date Recorded How hard is it for you to pa y for the very basics like food, housing, medical care, and air conditioning / heating? Somewhat hard 11/03/2024 Transportation Answer Date Recorded Has the lack of transportati on kept you from meetings, work, or from getting things needed for daily living? No Has the lack of transportati on kept you from medical appointments or from getting medications? No 11/03/2024 Social Isolation Answer Date Recorded How often do you feel lonely or isolated from th ose around you? Rarely 11/03/2024 Food Risk Answer Date Recorded Within the past 12 months we worried whether our food would run out before we got money to buy more. Not asked 11/03/2024 Within the past 12 months th e food we bought just didn't last and we didn't have money to get more. Not asked 11/03/2024 Dependent Care Answer Date Recorded Do you need help finding or paying for care for your loved ones. For example, children's book author or elderly care for an older adult? No 11/03/2024 Education Answer Date Recorded Do you think completing more education or training, like finishing a GED, going to college, or learning a trade, would be helpful for you? No 11/03/2024 Employment and Income Answer Date Recor ded During the last four weeks, have you been actively looking for work? No 11/03/2024 Living Situation Answer Date Recorded What is your living situation? 0 11/03/2024 Comments No Sex and Gender Information Value Date Recorded Sex Assigned at Not on file Legal Sex Female 4:57 AM EST Gender Identity Not on file Sexual Orientation Not on file Obstetrics History Para Term AB IAB SAB Ectopic Multiple Livin g Live Births 2 2 1 1 2 2 Date Outcome GA Total Labor Labor/2nd/3rd Weight Sex Type Anes PTL Vilma A1 A5 Name Clin 002 Term 40w 0d 2948 g (104 oz) M CS-Un spec Living Complications: Intolera nce 004 36w 0d 2750 g (97 oz) M CS-Un spec Living Complications: premat ure rupture of membranes Last Filed Vital Signs Vital Sign Reading Time Taken Comments Blood Pressure 110/79 11/03/2024 11:27 AM EDT Pulse 76 11/03/2024 11:27 AM EDT Temperature 36.7 ??C (98.1 ??F) 06/23/2024 11:[address] Respiratory Rate 14 11/03/2024 11:27 AM EDT Oxygen Saturation - - Inhaled Oxygen Concentration - - Weight 78.7 kg (173 lb 6.4 oz) 11/03/2024 11:27 AM EDT Height 152.4 cm (5') 11/03/2024 11:27 AM EDT Body Mass Index 33.86 11/03/2024 11:27 AM EDT Plan of Treatment Upcoming Encounters Date Type Department Care Team (Late st Contact Info) Description 12/01/2024 11:45 AM EDT Office Visit [facility] Hematology Oncology [address] [place] [phone] Simone Elkins MD [address] [place] [phone] 01/26/2025 12:30 PM EDT Office Visit Adult Medicine [address] [phone] Krys Donaldson PA [address] [place] [address] Health Maintenance Due Date Last Done Comments COVID-19 Vaccine (#1) 1985 Hepatitis B Vaccines (1 of 3 - 19+ 3-dose series) 1999 Pneumococcal Vaccine: Pediatrics (0 to 5 Years) and At-Risk Patients (6 to 64 Years) (1 of 2 - PCV) 1999 Cervical Cancer Screening: HPV 2001 Hypertension/CHF/CAD Annual BMP Blood Test 06/14/2025 06/14/2024 Depression Screening 11/03/2025 11/03/2024 Social Influencers of Health Screening 11/03/2025 11/03/2024 Breast Cancer Screening 10/06/2026 10/06/19, 09/23/2024, 09/15/2024, Additional history exists Cholesterol Screening (Lipid Panel) 11/24/2029 11/24/2024 DTaP,Tdap,and Td Vaccines (3 - Td or Tdap) 02/12/2033 02/12/2023, 04/08/2012 Influenza Vaccine Discontinued 06/12/2014, 04/08/2012 HIV Screening Completed 11/24/2024 Hepatitis C Screening Completed 11/24/2024 HIB Vaccines Aged Out No longer eligi ble based on patient's age to complete this topic HPV Vaccines Aged Out No longer eligi ble based on patient's age to complete this topic Hepatitis A Vaccines Aged Out No long er eligible based on patient's age to complete this topic IPV Vaccines Aged Out No longer eligi ble based on patient's age to complete this topic MMR Vaccines Aged Out No longer eligi ble based on patient's age to complete this topic Meningococcal ACWY Vaccine Aged Out N o longer eligible based on patient's age to complete this topic Meningococcal B Vaccine Aged Out No l onger eligible based on patient's age to complete this topic RSV Immunization Patients Under 20 months Aged Out No longer eligible based on patient's age to complete this topic Varicella Vaccines Aged Out No longer eligible based on patient's age to complete this topic Medical Devices Implanted Type Area Material Handler 1St Shift Device Identifier Shelf Expiration Date Model / Serial / Lot Marker Brst Biopsy Site [place] - [id number] Implanted:Qty: 1 on 10/06/2024 by Nerissa Aquino MD at [facility] Breast Implants Left: Breast DEVICOR [employer] [id number] / / [id number] Procedures Procedure Name Priority Date/Time Associated Diagnosis Comments CBC WITH AUTO DIFFERENTIAL Routine 11/24/2024 8:23 AM EDT Iron deficiency anemia secondary to inadequate dietary iron intake HEPATITIS C ANTIBODY Routine 11/24/2024 8:23 AM EDT Need for hepatitis C screening test LIPID PANEL WITH REFLEX TO DIRECT LDL Routine 11/24/2024 8:23 AM EDT Mixed hyperlipidemia HEMOGLOBIN A1C Routine 11/24/2024 8:23 AM EDT Mixed hyperlipidemia HIV 1, 2 ANTIBODY, P24 ANTIGEN WITH REFLEX TO DIFFERENTIATION Routine 11/24/2024 8:23 AM EDT Encounter for screening for HIV CBC AND DIFFERENTIAL Routine 11/24/2024 8:23 AM EDT Iron deficiency anemia secondary to inadequate dietary iron intake FERRITIN Routine 11/24/2024 8:23 AM EDT Iron deficiency anemia secondary to inadequate dietary iron intake IRON AND TIBC Routine 11/24/2024 8:23 AM EDT Iron deficiency anemia secondary to inadequate dietary iron intake MG MAMMO BREAST SPECIMEN (STATISTICS) Routine 10/10/2024 11:35 AM EST Calcification of left breast MG MAMMO DIGITAL DIAGNOSTIC POST CLIP LEFT Routine 10/06/2024 8:49 AM EST Breast calcifications MG STEREO BX BREAST PERC 1ST LESION LEFT Routine 10/06/2024 8:48 AM EST Breast calcifications TISSUE EXAM Routine 10/06/2024 8:15 AM EST Breast calcifications MG MAMMO DIAGNOSTIC ADDL VIEWS LEFT Routine 09/23/2024 9:30 AM EST Breast calcifications MG MAMMO DIGITAL SCREENING W MANINDER BILAT Routine 09/15/2024 2:51 PM EST Encounter for screening mammogram for breast cancer from Last 3 Months Results * Hepatitis C antibody (11/24/2024 8:23 AM EDT) [facility] Hepatitis C Antibody Negative Negative LAB CHEMISTRY METHOD 11/24/2024 11:[address] [facility] Blood Venous blood specimen / Unknown Venipuncture / Unknown 11/24/2024 8:23 AM EDT 11/24/2024 8:59 AM EDT Patricia Harmon MD LAB BLOOD ORDERA BLES Final Result Performing Organization Address [facility]/ZIP Co de Phone Number [facility] [address] [place] [address], [place] [phone] * HIV 1,2 antibody, p24 antigen with reflex to differentiation (11/24/2024 8:23 AM EDT) [facility] HIV Combo AB/AG Negative Negative LAB CHEMISTRY METHOD 11/24/2024 11:[address] [facility] Blood Venous blood specimen / Unknown Venipuncture / Unknown 11/24/2024 8:23 AM EDT 11/24/2024 8:[address] [facility] - 11/24/2024 11:24 AM EDT This assay is a 4th generation assay allowing for earlier detection of HIV infection by detecting the presence of the HIV-1 p24 antigen as well as the traditional antibodies to HIV type 1 (including group O) and type 2. ??Use of a 4th generation assay is the current CDC recommendation for HIV screening. Patricia Harmon MD LAB BLOOD ORDERA BLES Final Result Performing Organization Address [facility]/ZIP Co de Phone Number [facility] [address] [place] [address], [place] [phone] * (ABNORMAL) Lipid panel with reflex to direct LDL (11/24/2024 8:23 AM EDT) Cholesterol 173 0 - 200 mg/dL LAB CHEMISTRY METHOD 11/24/2024 9:[address] [facility] Triglycerides 79 0 - 150 mg/dL LAB CHEMISTRY METHOD 11/24/2024 9:[address] [facility] HDL 53 >=40 mg/dL LAB CHEMISTRY METHOD 11/24/2024 9:[address] [facility] LDL Calculated 104(H) 0 - 100 mg/dL LAB CHEMISTRY METHOD 11/24/2024 9:[address] [facility] VLDL Cholesterol [place] 15.8 mg/dL LAB CHEMISTRY METHOD 11/24/2024 9:44 AM [facility] Non HDL Chol. (LDL+VLDL) 120 <145 mg/dL LAB CHE[facility]STRY METHOD [facility] Chol/HDL Ratio 3.3 0.0 - 4.4 LAB CHEMISTRY METHOD 11/24/2024 9:44 AM [facility] Blood Venous blood specimen / Unknown Venipuncture / Unknown 11/24/2024 8:23 AM EDT 11/24/2024 8:59 AM EDT Patricia Harmon MD LAB BLOOD ORDERA BLES Final Result [facility] [address] [place] [address], [place] [phone] * CBC auto differential (11/24/2024 8:23 AM EDT) Pathologist [facility] WBC 5.6 4.8 - 10.8 K/[facility] LAB HEMETOLOGY METHOD 11/24/2024 9:[address] [facility] RBC 4.30 3.80 - 4.80 M/mcL LAB HEMETOLOGY METHOD 11/24/2024 9:18 AM [facility] Hemoglobin 13.0 11.5 - 16.0 g/dL LAB HEMETOLOGY METHOD 11/24/2024 9:18 AM [facility] Hematocrit 39.0 35.0 - 47.0 % LAB HEMETOLOGY METHOD 11/24/2024 9:18 AM [facility] MCV 90.1 79.0 - 98.0 FL LAB HEMETOLOGY METHOD 11/24/2024 9:18 AM [facility] MCH 30.0 27.0 - 32.0 pcg LAB HEMETOLOGY METHOD 11/24/2024 9:18 AM [facility] MCHC 33.3 32.0 - 37.0 g/dL LAB HEMETOLOGY METHOD 11/24/2024 9:18 AM [facility] RDW 13.1 11.0 - 15.0 % LAB HEMETOLOGY METHOD 11/24/2024 9:18 AM [facility] Platelets 216 130 - 400 K/mcL LAB HEMETOLOGY METHOD 11/24/2024 9:18 AM [facility] MPV 9.8 7.0 - 11.0 FL LAB HEMETOLOGY METHOD 11/24/2024 9:18 AM [facility] NRBC 0.0 <1.0 % LAB HEMETOLOGY METHOD 11/24/2024 9:18 AM [facility] NRBC Absolute 0.00 <0.10 K/mcL LAB HEMETOLOGY METHOD 11/24/2024 9:18 AM [facility] Neutrophils Relative 59.6 % LAB HEMETOLOGY METHOD 11/24/2024 9:18 AM [facility] Lymphocytes Relative 23.1 % LAB HEMETOLOGY METHOD 11/24/2024 9:[address] [facility] Monocytes Relative 11.2 % LAB HEMETOLOGY METHOD 11/24/2024 9:[address] [facility] Eosinophils Relative 5.5 % LAB HEMETOLOGY METHOD 11/24/2024 9:18 AM [facility] Basophils Relative 0.4 % LAB HEMETOLOGY METHOD 11/24/2024 9:[address] [facility] Immature Granulocytes Relative 0.2 % LAB HEMETOLOGY METHOD [facility]/24[facility]2024 9[facility] Neutrophils Absolute 3.35 1.50 - 7.00 K/mcL LAB HEMETOLOGY METHOD 11/24/2024 9:18 AM [facility] Lymphocytes Absolute 1.30 1.00 - 5.00 K/mcL LAB HEMETOLOGY METHOD 11/24/2024 9:18 AM [facility] Monocytes Absolute 0.63 0.20 - 1.00 K/mcL LAB HEMETOLOGY METHOD 11/24/2024 9:18 AM [facility] Eosinophils Absolute 0.31 0.00 - 0.50 K/mcL LAB HEMETOLOGY METHOD 11/24/2024 9:18 AM [facility] Basophils Absolute 0.02 0.00 - 0.20 K/mcL LAB HEMETOLOGY METHOD 11/24/2024 9:18 AM [facility] Immature Granulocytes Absolute 0.01 0.00 - 0.03 K/mcL LAB HEMETOLOGY METHOD 11/24/2024 9:18 AM [facility] Blood Venous blood specimen / Unknown Venipuncture / Unknown 11/24/2024 8:23 AM EDT 11/24/2024 9:01 AM EDT us Simone Elkins MD LAB BLOOD ORDERABLES Final Result [facility] [address] [place] [address], [place] [phone] * Iron and TIBC (11/24/2024 8:23 AM EDT) [facility] Iron 90 40 - 150 mcg/dL LAB CHEMISTRY METHOD 11/24/2024 9:[address] [facility] TIBC 315 250 - 450 mcg/dL LAB CHEMISTRY METHOD 11/24/2024 9:[address] [facility] Iron Saturation 29 15 - 50 % LAB CHEMISTRY METHOD 11/24/2024 9:[address] [facility] Blood Venous blood specimen / Unknown Venipuncture / Unknown 11/24/2024 8:23 AM EDT 11/24/2024 8:59 AM EDT Simone Elkins MD LAB BLOOD ORDERABLES Final Result Performing Organization Address City/[facility]/ZIP Co de Phone Number [facility] [address] [place] [address], [place] [phone] * Hemoglobin A1c (11/24/2024 8:23 AM EDT) [facility] Hemoglobin A1C 5.5 <6.5 % LAB CHEMISTRY METHOD 11/24/2024 11:[address] [facility] Mean Bld Glu Estim. 111 mg/dL LAB CHEMISTRY METHOD 11/24/2024 11:[address] [facility] Blood Venous blood specimen / Unknown Venipuncture / Unknown 11/24/2024 8:23 AM EDT 11/24/2024 9:01 AM EDT Patricia Harmon MD LAB BLOOD ORDERA BLES Final Result [facility] [address] [place] [address], [place] [phone] * Ferritin (11/24/2024 8:23 AM EDT) Ferritin 20 8 - 252 ng/mL LAB CHEMISTRY METHOD 11/24/2024 9:[address] [facility] Blood Venous blood specimen / Unknown Venipuncture / Unknown 11/24/2024 8:23 AM EDT 11/24/2024 8:59 AM EDT Simone Elkins MD LAB BLOOD ORDERABLES Final Result Performing Organization Address City/[facility]/ZIP Co de Phone Number [facility] [address] [place] [address], [place] [phone] * MG Mammo Breast Specimen (Statistics) (10/10/2024 11:35 AM EST) Narrative [facility] PACS/VR - 10/10/2024 11:35 AM EST This order has been auto-finalized and does not contain a result. Maria Luz Downs MD IMG BI PROCEDURES Final Result Performing Organization Address [facility]/ZIP Co de Phone Number [facility] PACS/VR * MG Mammo Digital Diagnostic Clip Post MG Guide Left (Statistics) (10/06/2024 8:49 AM EST) Anatomical Region Laterality Modality Breast Left Mammography 10/06/2024 9:14 AM EST Impressions 10/06/2024 9:18 AM EST Postprocedure mammography showing biopsy marker to be well positioned in the anterior upper outer left breast. ?? BI-RADS CATEGORY: Waiting for Pathology RECOMMENDATION: See report for recommendation. Mammo Location: [facility], [address] [place] [address], [id number], . -------- FINAL REPORT -------- Dictated By: Nerissa Aquino Dictated Date: 10/06/2024 09:14 ET Assigned Physician: Nerissa Aquino Reviewed and Electronically Signed By: Nerissa Aquino Signed Date: 10/06/2024 09:18 ET Workstation ID: [id number] Transcribed By: Self Edit Transcribed Date: 10/06/2024 09:14 ET Narrative 10/06/2024 9:18 AM EST CLINICAL: Post procedure mammogram status post stereotactic core biopsy of the left breast. COMPARISON: Diagnostic mammogram 09/23/24, screening mammogram 09/15/24 ?? FINDINGS: MAMMOGRAPHY TECHNIQUE: Digital CC, lateral and MLO views of the left breast. A butterfly biopsy marker is well-positioned in the anterior upper outer breast, at the site of the small group of microcalcifications noted on the prebiopsy mammograms. No significant residual microcalcifications are seen. BREAST DENSITY: C - The breasts are heterogeneously dense which may obscure small masses. Procedure Note Nerissa Aquino MD - 10/06/2024 CLINICAL: Post procedure mammogram status post stereotactic core biopsy ofthe left breast. COMPARISON: Diagnostic mammogram 09/23/24, screening mammogram 09/15/24 FINDINGS: MAMMOGRAPHY TECHNIQUE: Digital CC, lateral and MLO views of the left breast. A butterfly biopsy marker is well-positioned in the anterior upper outerbreast, at the site of the small group of microcalcifications noted on theprebiopsy mammograms. No significant residual microcalcifications areseen. BREAST DENSITY: C - The breasts are heterogeneously dense which mayobscure small masses. IMPRESSION: Postprocedure mammography showing biopsy marker to be well positioned inthe anterior upper outer left breast. BI-RADS CATEGORY: Waiting for Pathology RECOMMENDATION: See report for recommendation. Mammo Location: [facility], [address] [place] [address], [id number], . -------- FINAL REPORT -------- Dictated By: Nerissa Aquino Dictated Date: 10/06/2024 09:14 ET Assigned Physician: Nerissa Aquino Reviewed and Electronically Signed By: Nerissa Aquino Signed Date: 10/06/2024 09:18 ET Workstation ID: [id number] Transcribed By: Self Edit Transcribed Date: 10/06/2024 09:14 ET Patricia Harmon MD IMG BI PROCEDURE S Final Result * MG Stereo Bx Breast Perc 1st Lesion Left w/ MG Post Clip Imaging to follow (10/06/2024 8:48 AM EST) Anatomical Region Laterality Modality Breast Left Mammography 10/06/2024 8:55 AM EST Addenda Addendum by Nerissa Aquino MD on 10/10/2024 1:40 PM EST Addendum: Breast biopsy follow-up. ?? Date of procedure: 10/06/24 Date of pathology report: 10/10/24 Pathology: Benign breast tissue with adenosis, papillary apocrine metaplasia, and pseudoangiomatous stromal hyperplasia. Minute calcification seen within a benign lobule. No atypia or neoplasm identified. Concordant with the imaging appearance. The multiple calcifications visible in the tissue specimen were not identified at pathology, despite deeper levels obtained. The calcifications of concern appear to be absent on the post procedure mammogram, indicating adequate targeting and biopsy of the lesion. As a precautionary measure, however, a follow-up left mammogram is recommended in 6 months to reassess the biopsy site. BI-RADS 2: ??Benign Finding RECOMMENDATION: Short Interval Follow-up is recommended for the left breast in 6 months. -------- ADDENDUM -------- Dictated By: Nerissa Aquino Dictated Date: 10/10/2024 13:36 ET Assigned Physician: Nerissa Aquino Reviewed and Electronically Signed By: Nerissa Aquino Signed Date: 10/10/2024 13:40 ET Workstation ID: [id number] Transcribed By: Self Edit Transcribed Date: 10/10/2024 13:36 ET Impressions 10/06/2024 9:14 AM EST 1. Tomosynthesis guided vacuum-assisted core biopsy of indeterminate microcalcifications in the left breast. A tissue marker (butterfly) was placed at the biopsy site. 2. Post procedure mammogram shows biopsy marker to be well positioned. 3. Pathology results are pending at this time and will be reported in an addendum to this report. BI-RADS CATEGORY: Waiting for Pathology -------- FINAL REPORT -------- Dictated By: Nerissa Aquino Dictated Date: 10/06/2024 08:55 ET Assigned Physician: Nerissa Aquino Reviewed and Electronically Signed By: Nerissa Aquino Signed Date: 10/06/2024 09:14 ET Workstation ID: [id number] Transcribed By: Self Edit Transcribed Date: 10/06/2024 08:55 ET Narrative 10/06/2024 9:14 AM EST HISTORY: Small group of indeterminate microcalcifications left breast. COMPARISON: Diagnostic mammogram 09/23/24, screening mammogram 09/15/24 FINDINGS: Informed consent was obtained from the patient for tomosynthesis guided vacuum-assisted core biopsy of a small group of indeterminate microcalcifications in the anterolateral left breast. The left breast was marked and a timeout procedure was performed. The patient was positioned in the biopsy unit. The left breast was compressed in the CC position and the calcifications were targeted using tomosynthesis. The skin was cleansed with Betadine and anesthetized with 2% lidocaine buffered with sodium bicarbonate. The 10-gauge Mammotome Revolve biopsy needle was advanced to depth using a vertical approach. The needle was fired and a series of 12 vacuum-assisted core biopsies were obtained uneventfully. Digital specimen images show several calcifications from the group of concern to lie within the tissue cores. The tissue was then placed immediately into formalin, segregated with respect to the presence or absence of calcifications. A small metallic tissue marker (butterfly) was placed at the biopsy site, with deployment in the breast confirmed with stereotactic images. The needle was then removed from the breast and hemostasis was achieved. The incision was closed with Dermabond. The patient was instructed on wound care and given an ice pack. She tolerated the procedure well. No complications were noted. Following standard clip mammographic images of the left breast, she left the Department in satisfactory condition. Procedure Note Nerissa Aquino MD - 10/06/2024 HISTORY: Small group of indeterminate microcalcifications left breast. COMPARISON: Diagnostic mammogram 09/23/24, screening mammogram 09/15/24 FINDINGS: Informed consent was obtained from the patient for tomosynthesis guidedvacuum-assisted core biopsy of a small group of indeterminatemicrocalcifications in the anterolateral left breast. The left breast was marked and a timeout procedure was performed. The patient was positioned in the biopsy unit. The left breast wascompressed in the CC position and the calcifications were targeted usingtomosynthesis. The skin was cleansed with Betadine and anesthetized with2% lidocaine buffered with sodium bicarbonate. The 10-gauge MammotomeRevolve biopsy needle was advanced to depth using a vertical approach. Theneedle was fired and a series of 12 vacuum-assisted core biopsies wereobtained uneventfully. Digital specimen images show several calcifications from the group ofconcern to lie within the tissue cores. The tissue was then placedimmediately into formalin, segregated with respect to the presence orabsence of calcifications. A small metallic tissue marker (butterfly) was placed at the biopsy site,with deployment in the breast confirmed with stereotactic images. Theneedle was then removed from the breast and hemostasis was achieved. Theincision was closed with Dermabond. The patient was instructed on woundcare and given an ice pack. She tolerated the procedure well. Nocomplications were noted. Following standard clip mammographic images ofthe left breast, she left the Department in satisfactory condition. IMPRESSION: 1. Tomosynthesis guided vacuum-assisted core biopsy of indeterminatemicrocalcifications in the left breast. A tissue marker (butterfly) wasplaced at the biopsy site. 2. Post procedure mammogram shows biopsy marker to be well positioned. 3. Pathology results are pending at this time and will be reported in anaddendum to this report. BI-RADS CATEGORY: Waiting for Pathology -------- FINAL REPORT -------- Dictated By: Nerissa Aquino Dictated Date: 10/06/2024 08:55 ET Assigned Physician: Nerissa Aquino Reviewed and Electronically Signed By: Nerissa Aquino Signed Date: 10/06/2024 09:14 ET Workstation ID: [id number] Transcribed By: Self Edit Transcribed Date: 10/06/2024 08:55 ET us Patricia Harmon MD [facility] BI PROCEDURE S Edited Result - Final * Tissue exam (10/06/2024 8:15 AM EST) Final Diagnosis A. Left breast, calcifications, butterfly marker, stereotactic core biopsy: Benign adipose tissue without atypia or neoplasm No calcifications identified on deeper levels B. Left breast, associated tissue, butterfly marker, stereotactic core biopsy: Benign breast tissue with adenosis, papillary apocrine metaplasia, and pseudoangiomatous stromal hyperplasia Minute calcification seen within a benign lobule No atypia or neoplasm identified 1:29 PM [facility] Comment The paraffin blocks of both specimens were radiographed and no calcifications were identified. The preliminary findings were discussed with Dr. Aquino via secure chat on 10/07/24. Notification of final report was sent on 10/10/24. 1:29 PM [facility] Clinical Information HydroMARK butterfly The biopsy is done for: Coarse round microcalcifications Probability that the target was sampled: High History of previous breast cancer: No History of non-breast cancer: No History of atypical hyperplasia: No History of radiation/chemotherap y: No 1:29 PM [facility] Gross Description A. Breast, Left, calcifications: Labeled left breast calcs . Received in formalin is a 1.6 x 1.3 x 0.2 cm aggregate of irregular to cylindrical yellow-pennington fibrofatty breast tissue fragments which is submitted in toto between sponges in one cassette, multiple pieces, x 3. B. Breast, Left, tissue: Labeled left breast tissue . Received in formalin with two plastic collection devices is a 3.6 x 3.4 x 0.4 cm aggregate of irregular to cylindrical yellow-pennington fibrofatty breast tissue fragments which is submitted in toto in three cassettes, multiple pieces each, x 3. Time collected: 8:15 AM 10/06/2024 Time put in formalin: 8:20 AM 10/06/2024 Total cold ischemic time: 5 minutes Time tissue exits final stage of formalin on tissue processor: 9 PM 10/06/2024 Total fixation time (ideally between 6 and 72 hours): 12.5 hours CHEY 1:29 PM [facility] Disclaimer Unless otherwise specified, all tissue is 10% NB formalin fixed and paraffin embedded. 1:29 PM EST [facility] Tissue Left breast structure / Unknown 10/06/2024 8:15 AM EST 10/06/2024 11:51 AM EST Tissue specimen (specimen) Left breast structure / Unknown 10/06/2024 8:18 AM EST 10/06/2024 11:51 AM EST Patricia Harmon MD LAB PATHOLOGY OR DERABLES Final Result [facility] [address] [place] [address], * (ABNORMAL) MG Mammo Diagnostic Addl Views Left (09/23/2024 9:30 AM EST) Anatomical Region Laterality Modality Breast Left Mammography 09/23/2024 8:35 AM EST Impressions 09/23/2024 9:14 AM EST Calcifications in the left upper outer breast. ??Stereotactic biopsy is recommended. Findings and recommendations were conveyed to the patient. ? BI-RADS CATEGORY: 4 - SUSPICIOUS RECOMMENDATION: Core biopsy of ??left breast recommended. Mammo Location: [facility], [address], [place], [address], . -------- FINAL REPORT -------- Dictated By: Germania Abernathy Dictated Date: 09/23/2024 08:35 ET Assigned Physician: Germania Abernathy Reviewed and Electronically Signed By: Germania Abernathy Signed Date: 09/23/2024 09:14 ET Workstation ID: [id number] Transcribed By: Self Edit Transcribed Date: 09/23/2024 08:58 ET Narrative 09/23/2024 9:14 AM EST CLINICAL: 44 years old, Female, callback from screening for calcifications in the left breast. COMPARISON: 09/15/2024, 11/23/2020 ?? FINDINGS: MAMMOGRAPHY TECHNIQUE: Left CC and LM magnification views were obtained digitally with 2-D mammogram. ??Computer-aided detection was utilized in evaluation of this exam (CAD). There are scattered calcifications in the left upper outer quadrant with a more focal group measuring 3 mm in the upper outer quadrant at anterior to middle depth for which biopsy is recommended. BREAST DENSITY: B - There are scattered areas of fibroglandular density. Procedure Note Germania Abernathy MD - 09/23/2024 CLINICAL: 44 years old, Female, callback from screening for calcificationsin the left breast. COMPARISON: 09/15/2024, 11/23/2020 FINDINGS: MAMMOGRAPHY TECHNIQUE: Left CC and LM magnification views were obtained digitally with2-D mammogram. Computer-aided detection was utilized in evaluation ofthis exam (CAD). There are scattered calcifications in the left upper outer quadrant with denny focal group measuring 3 mm in the upper outer quadrant at anterior tomiddle depth for which biopsy is recommended. BREAST DENSITY: B - There are scattered areas of fibroglandular density. IMPRESSION: Calcifications in the left upper outer breast. Stereotactic biopsy isrecommended. Findings and recommendations were conveyed to the patient. BI-RADS CATEGORY: 4 - SUSPICIOUS RECOMMENDATION: Core biopsy of left breast recommended. Mammo Location: [facility], [address] [place] [address], [id number], . -------- FINAL REPORT -------- Dictated By: Germania Abernathy Dictated Date: 09/23/2024 08:35 ET Assigned Physician: Germania Abernathy Reviewed and Electronically Signed By: Germania Abernathy Signed Date: 09/23/2024 09:14 ET Workstation ID: [id number] Transcribed By: Self Edit Transcribed Date: 09/23/2024 08:58 ET Patricia Harmon MD IMG BI PROCEDURE S Final Result * (ABNORMAL) MG Mammo Digital Screening w Maninder bilat (09/15/2024 2:51 PM EST) Anatomical Region Laterality Modality Breast Bilateral Mammography 09/15/2024 4:01 PM EST Impressions 09/15/2024 4:10 PM EST Incompletely characterized left breast calcifications. ?? Recommend diagnostic left mammography Recommend spot magnified views of the left retroareolar region in the craniocaudal and 90 degree mediolateral projections ASSESSMENT: ?? BI-RADS 0: INCOMPLETE - need additional imaging evaluation and/or prior mammograms for comparison RECOMMENDATION(S): 1: Special mammographic view(s) needed LEFT -------- FINAL REPORT -------- Dictated By: Levar Mercado Dictated Date: 09/15/2024 16:01 ET Assigned Physician: Levar Mercado Reviewed and Electronically Signed By: Levar Mercado Signed Date: 09/15/2024 16:10 ET Workstation ID: [id number] Transcribed By: Self Edit Transcribed Date: 09/15/2024 16:01 ET Narrative 09/15/2024 4:10 PM EST EXAM: ??SCREENING MAMMOGRAPHY, BILATERAL HISTORY: ??SCREENING. ??No additional history. COMPARISON: ??Initial exam TECHNIQUE: Synthesized CC and MLO projections of each breast. ??Tomosynthesis of each breast in the CC and MLO projections. ADDITIONAL IMAGING: None Computer-aided detection was employed with the iCAD ??profound AI 3-D. TISSUE DENSITY: There are scattered areas of fibroglandular density. (BI-RADS category B) FINDINGS: RIGHT BREAST: No suspicious mass. No suspicious calcification. No distortion. ?? No additional suspicious right breast findings LEFT BREAST: There are some incompletely characterized calcifications behind the left nipple in the MLO projection. ??These are not well localized in the craniocaudal projection. us Self Referral Sppl IMG BI PROCEDURES Final Resul t from Last 3 Months Insurance [facility] Care Teams Director Of Programming Relationship Specialty Start Date End Date Patricia Harmon MD [address] [place] [id number] PCP - General Internal Medicine 06/21/24
--- OUTSIDE RECORDS SUMMARY | 2024-12-01 11:02 | XMS_ITS | Encounter Summary ---
Author Organization [facility] Address [address] [place] [address] Care Team Providers Care Stock Letterer Name Role Phone Germania Archibald MD Primary Care Provider [phone] Encounter Details Date Type Department Care Team (Late st Contact Info) Description 06/09/2024 11:45 AM EDT Hospital Encounter TH HISTORIC ENCOUNTERS EASTERN CONVERSION ONLY Simone Elkins MD [address] [place] [phone] Social History Tobacco Use Types Packs/Day Years [...] care for your loved ones. For example, exceptional children's teacher or elderly care for an older adult? 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 Interval history: The patient is a 44-year-old premenopausal female who underwent gastric sleeve surgery in 02/2021. She subsequently lost 80 pounds. She also reported heavy menses since 2020. A CBC on 09/28/2020 showed a WBC 7.3, hemoglobin 12.5 with MCV 88, and platelet count 251,000. She developed moderate to severe fatigue in early 2021. She denied lightheadedness. She denied dyspnea on exertion. A CBC on 11/12/2021 showed WBC 6.0, hemoglobin 11.4 with MCV 88, and platelet count 271,000. A creatinine was 0.5. A percent transferrin saturation was 8. A ferritin was 5. B12 and folate levels were normal. A methylmalonic acid level was normal at 0.13. She was started on oral iron. She tolerated oral iron poorly due to severe headaches. She denies clinical bleeding apart from regular heavy menses. She denies epistaxis, hemoptysis, hematemesis, hematuria, melena, or hematochezia. She completed a course of IV Venofer in 03/2022. She tolerated the infusions well without side effects. She reported improvement in symptoms. She reported only mild fatigue. She denies lightheadedness. She denies dyspnea on exertion. A CBC on 07/02/2022 showed WBC 6.5, hemoglobin 12.3 with MCV 92, and platelet count 247,000. A transferrin saturation was 19. A ferritin was 47. B12 and folate levels were normal. Her chemical handler prescribed OCPs in 09/2022. She reported less heavy menses. A CBC on 10/30/2022 showed WBC 5.7, hemoglobin 12.8 with MCV 92, platelet count 250,000. A percent transferrin saturation was 17. A ferritin was 7. B12 and folate levels were normal. A CBC on 02/02/2023 showed WBC 6.2, hemoglobin 12.5 with MCV 91, and platelet count 240,000. A percent transferrin saturation was 13. A ferritin was 6. B12 and folate levels were normal. She reported moderate fatigue. She denied lightheadedness. She denied dyspnea on exertion. She received a course of IV Venofer in 01/2023. She tolerated infusions well without side effects. She reported lessened fatigue. She self-discontinued the OCPs in early 03/2023 due to difficulty and frequent spotting, which she attributed to the OCPs. She reports regular to heavy menses. A CBC on 05/21/2023 showed WBC 6.8, hemoglobin 12.5 with MCV 91, and platelet count 223,000. A percent transferrin saturation was 21. A ferritin was 65. B12 and folate levels were normal. A CBC on 09/28/2023 showed WBC 7.9, hemoglobin 13.9 with MCV 90, and platelet count 228,000. A percent transferrin saturation was 24. A ferritin was 15. A CBC on 01/21/2024 showed WBC 9.1, hemoglobin 12.7 with MCV 89, and platelet count 292,000. A percent transferrin saturation was 12. A ferritin was 7. She denied fatigue, lightheadedness, or dyspnea on exertion. She received a course of IV Feraheme in 01/2024. She tolerated the infusions well without side effects. A CBC on 06/06/2024 showed WBC 7.5, hemoglobin 13.1 with MCV 96, and platelet count 229,000. A percent transferrin saturation was 26. A ferritin was 55. She denies headaches or visual changes. She denies cough, hemoptysis, or dyspnea on exertion. She denies nausea or abdominal pain. She denies unusual bone pain. She reports an intact appetite. Past medical history: Lumbar spinal stenosis, hypertension, anxiety/depression, allergic rhinitis. Current medications: Carafate, Protonix. Allergies: No known drug allergies. Family history: There is no history of cancer in her parents, 2 sisters, or brother. Social history: She works as a home health aide. She is . She has 2 sons. She denies alcohol use. She is a never smoker. Review of systems: The remainder of a 10 point review of systems was unremarkable. Physical examination: HEENT: Sclerae anicteric, normal oropharyngeal membrane. Neck: No lymphadenopathy. Lungs: Clear to auscultation. Heart: No murmurs. Abdomen: Soft, nontender, no organomegaly or masses. Extremities: No edema. Skin: No rash. Neurologic: Normal gait. Assessment/plan: The patient is a 42-year-old female who is referred for management iron deficiency anemia followinggastric sleeve surgery in 02/2021. She reports heavy menses since 2020. She was intolerant of oral iron. She completed a course of IV Venofer in 03/2022. She tolerated the infusions well without side effects. She reported significant improvement in symptoms. The iron deficiency anemia resolved. Her chemical handler prescribed OCPs in 09/2022. She reported less heavy menses. She self-discontinued the OCPs in early 03/2023 due to difficulty and frequent spotting, which she attributed to the OCPs. She developed an iron deficiency without anemia in 10/2022. She reported moderate fatigue. We infusea course of IV Venofer in 01/2023. She tolerated the infusions well without side effects. She reported lessened fatigue. The iron deficiency anemia resolved. She developed an iron deficiency without anemia in 01/2024. We infused a course of IV Feraheme in 01/2024. She tolerated infusions well without side effects. The iron deficiency resolved. We will monitor CBCs and iron studies in our clinic. She may require periodic IV iron infusions. This encounter is of moderate risk. The patient has a severe symptomatic iron deficiency anemia, which is a life-threatening condition. She requires periodic IV iron infusions. documented in this encounter Plan of Treatment Upcoming Encounters Date Type Department Care Team (Late st Contact Info) Description 12/01/2024 11:45 AM EDT Office Visit [facility] Hematology Oncology [address] [place] [phone] Simone Elkins MD [address] [place] [phone] 01/26/2025 12:30 PM EDT Office Visit [address] [phone] Krys Donaldson PA [address] [place] [address] documented as of this encounter Procedures Procedure Name Priority Date/Time Associated Diagnosis Comments ..MISCELLANEOUS REFERENCE LAB TEST 06/09/2024 documented in this encounter Results * Miscellaneous reference lab test (06/09/2024) us Provider Onbase MD LAB BLOOD ORDERABLES Final Re sult documented in this encounter Visit Diagnoses Not on filedocumented in this encounter Care Teams Stock Letterer Relationship Specialty Start Date End Date Germania Archibald MD [address] [place] [address] PCP - General 06/03/24 06/14/24 documented as of this encounter
== END 2024-12-01 10:26 | disposition home or self-care (01) ==
PROVIDERS: PCP Emergency Medicine; Visit Provider Physician Assistant Surgical
DX: E66.9 Obesity, unspecified (principal); Z68.32 Body mass index [BMI] 32.0-32.9, adult; Z90.3 Acquired absence of stomach [part of]; Z98.84 Bariatric surgery status
CPT/HCPCS: 99214; G2211

== ENCOUNTER 2024-12-01 09:36 | Outpatient (REF) | payer OTHER, SELFPAY ==
[2024-12-01 10:57] LABS: MANUAL DIFF FLAG NO
[2024-12-01 12:06] LABS: Basophils Percent Auto 0.6 % (0-2); Eosinophils Absolute Auto 0.2 X10*3/uL (0.0-0.4); Eosinophils Percent Auto 3.8 % (0-4); Hematocrit 38.1 % (37.0-47.0); Hemoglobin 12.8 g/dl (12.0-16.0); Imm Gran Abs Auto 0.01 X10*3/uL (0.00-0.03); Imm Gran Pct Auto 0.2 % (0.0-0.4); Lymphocytes Absolute Auto 1.2 X10*3/uL (1.2-4.9); Lymphocytes Percent Auto 21.9 % (20-40); Mean Corpuscular HGB Conc 33.6 g/dl (31.0-35.0); Mean Corpuscular Hemoglobin 30.1 pg (27.0-33.0); Mean Corpuscular Volume 89.6 fL (80.0-98.0); Mean Platelet Volume 9.8 fL (9.4-12.3); Monocytes Absolute Auto 0.5 X10*3/uL (0.1-1.2); Monocytes Percent Auto 9.4 % (2-11); Neutrophils Absolute Auto 3.4 x10*3/uL (2.0-8.3); Neutrophils Percent Auto 64.1 % (45-73); Platelet Count 222 X10*3/uL (160-400); Red Blood Count 4.25 X10*6/uL (4.20-5.50); Red Cell Distribution Width 13.1 % (11.0-16.0); White Blood Count 5.2 X10*3/uL (4.8-10.8)
[2024-12-01 12:38] LABS: Estimated Average Glucose 108 mg/dL; Hemoglobin A1C 140.5153 umol/L; Hemoglobin A1c % 5.4 % (<6.0); Total Hemoglobin (HGBA1C) 4013.3634 umol/L
[2024-12-01 12:50] LABS: Alanine Aminotransferase 13 U/L (0-31); Albumin Level 4.2 g/dL (3.5-5.0); Anion Gap 12 (12-20); Aspartate Amino Transferase 21 U/L (5-31); Bilirubin Total 0.5 mg/dL (0.0-1.0); Blood Urea Nitrogen 21 mg/dL (9-16); C Reactive Protein 0.23 mg/dL (< or = 0.50); Calcium 9.5 mg/dL (8.4-10.2); Carbon Dioxide 26 mmol/L (22-29); Chloride 108 mmol/L (96-108); Cholesterol 180 mg/dL (<200); Estimated Glomerular Filt Rate > 60; Glucose Random 83 mg/dL (60-115); HDL Cholesterol 51 mg/dL (>40); Iron 81 mcg/dL (30-160); LDL Cholesterol Calculated 119 mg/dL (<100); Percent Iron Saturation 29 % (15-50); Potassium 4.4 mmol/L (3.3-5.1); Sodium 142 mmol/L (135-145); Total Iron Binding Capacity 284 mcg/dL (228-428); Total Protein 6.9 g/dL (6.5-8.0); Triglycerides 54 mg/dL (<150); Unsaturated Iron Binding 203 ug/dL
[2024-12-01 13:00] LABS: Alkaline Phosphatase 56 U/L (39-117); Ferritin 28 ng/mL (10-250); Insulin 3 uU/mL (2-29); TSH reflex Free T4 1.33 uIU/mL (0.32-4.0); Vitamin D 25-OH Total 21.3 ng/mL (>30)
--- OUTSIDE RECORDS SUMMARY | 2024-12-01 13:01 | XMS_ITS | Clinical Summary ---
Author Organization [facility] Address [address] [place] [address] Care Team Providers Care Veterinary Medicine Scientist Name Role Phone Germania Archibald MD Primary Care Provider [phone] Allergies No known active allergies Medications Medication [...] age to complete this topic Care Teams Veterinary Medicine Scientist Relationship Specialty Start Date End Date Germania Archibald MD PCP - General Internal Medicine 01/06/22
--- OUTSIDE RECORDS SUMMARY | 2024-12-01 13:02 | XMS_ITS | Encounter Summary ---
Author Organization [facility] Address [address] [place] [address] Care Team Providers Care Processing Rep Name Role Phone Patricia Harmon MD Primary Care Pr ovider Reason for Visit * Reason Comments Follow-up Encounter Details Date Type Department Care Team (Late st Contact Info) Description 12/01/2024 11:45 AM EDT Office Visit [facility] Hematology Oncology [address] [place] [phone] Simone Elkins MD [address] [place] [phone] Iron deficiency anemia secondary to inadequate dietary iron intake (Primary Dx) Social History Tobacco Use Types Packs/Day Years [...] care for your loved ones. For example, child care assistant or elderly care for an older adult? [...] Sign Reading Time Taken Comments Blood Pressure 112/77 12/01/2024 11:49 AM EDT Pulse - - Temperature 36.6 ??C (97.9 ??F) 12/01/2024 11:49 AM E DT Respiratory Rate - - Oxygen Saturation - - Inhaled Oxygen Concentration - - Weight 77.1 kg (170 lb) 12/01/2024 11:49 AM EDT Height - - Body Mass Index 33.2 11/03/2024 11:27 AM EDT documented in this encounter Progress Notes * Simone Elkins MD - 12/01/2024 11:45 AM EDT Diagnosis/treatment: Iron deficiency anemia [...] B12 and folate levels were normal. Her professional bass fisherman prescribed OCPs in 09/2022. She reported less [...] saturation was 26. A ferritin was 55. A CBC on 06/05/2025 showed WBC 5.6, hemoglobin 13.0 with MCV 90, and platelet count 216,000. A percent transferrin saturation was 29. A ferritin was 20. She denies headaches or visual changes. She [...] Normal gait. Assessment/plan: The patient is a 44-year-old female who is referred for management iron deficiency anemia followinggastric sleeve surgery in 02/2021. She reports heavy menses since 2020. She was intolerant of oral iron. She completed a course of IV Venofer in 03/2022. She tolerated the infusions well without side effects. She reported significant improvement in symptoms. The iron deficiency anemia resolved. Her professional bass fisherman prescribed OCPs in 09/2022. She reported less [...] She may require periodic IV iron infusions. Visit summary: The patient is a 44-year-old female who is followed for an iron deficiency anemia following gastricsleeve surgery. She had heavy menses since 2020. She has received periodic courses of IV iron with symptomatic benefit and resolution of the iron deficiency anemia. A CBC and iron studies in 11/2024 showed no iron deficiency anemia. Will monitor CBCs and iron studies in our clinic. This encounter is of moderate risk. The patient has a severe iron deficiency anemia, which is a life-threatening condition. She receives periodic courses of IV iron. documented in this encounter Plan of Treatment Upcoming Encounters Date Type Department Care Team (Late st Contact Info) Description 01/26/2025 12:30 PM EDT Office Visit [facility] [address] [place] [address] Krys Donaldson PA [address] [place] [address] 06/01/2025 10:00 AM EDT Office Visit [facility] Hematology Oncology [address] [place] [phone] Simone Elkins MD [address] [place] [address] Scheduled Orders Name Type Priority Associated Diagnoses Orde r Schedule CBC and differential Lab Routine Iron deficiency anemia secondary to inadequate dietary iron intake Expected: 06/02/2025 (Approximate), Expires: 12/01/2025 Ferritin Lab Routine Iron deficiency anemia secondary to inadequate dietary iron intake Expected: 06/02/2025 (Approximate), Expires: 12/01/2025 Iron and TIBC Lab Routine Iron deficiency anemia secondary to inadequate dietary iron intake Expected: 06/02/2025 (Approximate), Expires: 12/01/2025 documented as of this encounter Visit Diagnoses Diagnosis Iron deficiency anemia secondary to inadequate dietary iron intake- Primary documented in this encounter Additional Health Concerns Assessment Noted Time PHQ-9 Depression Total Score: 0 11/04/19 25 11:11 AM EDT documented as of this encounter Care Teams Processing Rep Relationship Specialty Start Date End Date Patricia Harmon MD [address] [place] [address] PCP - General Internal Medicine 06/21/24 documented as of this encounter
--- OUTSIDE RECORDS SUMMARY | 2024-12-01 13:02 | XMS_ITS | Encounter Summary ---
Author Organization [facility] Address [address] [place] [address] Care Team Providers Care Communicable Disease Specialist Name Role Phone Germania Archibald MD Primary Care Provider [phone] Encounter Details Date Type Department Care Team (Late st Contact Info) Description 06/09/2024 11:45 AM EDT Hospital Encounter TH HISTORIC ENCOUNTERS EASTERN CONVERSION ONLY Simone Elkins MD [address] [place] [phone] Social History Tobacco Use Types Packs/Day Years [...] for your loved ones. For example, children's tutor nursery or elderly care for an older adult? [...] B12 and folate levels were normal. Her director council on aging prescribed OCPs in 09/2022. She reported less [...] symptoms. The iron deficiency anemia resolved. Her director council on aging prescribed OCPs in 09/2022. She reported less [...] Description 01/26/2025 12:30 PM EDT Office Visit [address] [phone] Krys Donaldson PA [address] [place] [address] 06/01/2025 10:00 AM EDT Office Visit [facility] Hematology Oncology [address] [place] [phone] Simone Elkins MD [address] [place] [phone] documented as of this encounter Procedures Procedure Name Priority Date/Time Associated Diagnosis Comments ..MISCELLANEOUS REFERENCE LAB TEST 06/09/2024 documented in this encounter Results * Miscellaneous reference lab test (06/09/2024) us Provider Onbase MD LAB BLOOD ORDERABLES Final Re sult documented in this encounter Visit Diagnoses Not on filedocumented in this encounter Care Teams Communicable Disease Specialist Relationship Specialty Start Date End Date Germania Archibald MD [address] [place] [address] PCP - General 06/03/24 06/14/24 documented as of this encounter
--- OUTSIDE RECORDS SUMMARY | 2024-12-01 13:02 | XMS_ITS | Clinical Summary ---
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 Dx) 11/03/2024 11:15 AM EDT Office Visit Obstetrics and Gynecology [address] [address] Kumra, Praveena, CNM Encounter for annual routine gynecological examination (Primary Dx) 10/10/2024 10:38 AM EST - 10/10/2024 11:59 PM EST Hospital [facility] [address] [address] Calcification of left breast Discharge Disposition: Home or Self Care 10/06/2024 7:37 AM EST - 10/06/2024 11:59 PM EST Hospital Encounter [facility] [address] [address] Breast calcifications Discharge Disposition: Home or Self Care 10/06/2024 7:30 AM EST - 10/06/2024 11:59 PM EST Hospital Encounter [facility] [address] [address] Breast calcifications Discharge Disposition: Home or Self Care 09/23/2024 8:00 AM EST - 09/23/2024 11:59 PM EST Hospital Encounter [facility] [address] [address] Breast calcifications Discharge Disposition: Home or Self Care 09/15/2024 1:50 PM EST - 09/15/2024 11:59 PM EST Hospital Encounter [facility] [address] [address] Encounter for screening mammogram for breast cancer [...] care for your loved ones. For example, childhood teacher or elderly care for an older [...] Pressure 112/77 12/01/2024 11:49 AM EDT Pulse 76 11/03/2024 11:27 AM EDT Temperature 36.6 ??C (97.9 ??F) 12/01/2024 11:49 AM E DT Respiratory Rate 14 11/03/2024 11:27 AM EDT Oxygen Saturation - - Inhaled Oxygen Concentration - - Weight 77.1 kg (170 lb) 12/01/2024 11:49 AM EDT Height 152.4 cm (5') 11/03/2024 11:27 AM EDT Body Mass Index 33.2 11/03/2024 11:27 AM EDT Plan of Treatment Upcoming Encounters Date Type Department Care Team (Late st Contact Info) Description 01/26/2025 12:30 PM EDT Office Visit Adult Medicine [address] [address] Krys Donaldson PA [address] [place] [address] 06/01/2025 10:00 AM EDT Office Visit [facility] Hematology Oncology [address] [place] [address] Simone Elkins MD [address] [place] [address] Health Maintenance Due Date Last Done Comments [...] this topic Medical Devices Implanted Type Area Sports Medicine Trainer Device Identifier Shelf Expiration Date Model / Serial / Lot Marker Brst Biopsy Site Hydromark - [id number] Implanted:Qty: 1 on 10/06/2024 by Nerissa Aquino MD at [facility] Breast Implants Left: Breast DEVICOR DEXMA [id number]- 10-T4 / / [id number] Procedures Procedure Name Priority Date/Time Associated [...] Routine 09/23/2024 9:30 AM EST Breast calcifications MAMMO DIGITAL SCREENING W MANINDER BILAT Routine 09/15/2024 2:51 PM EST Encounter for screening mammogram for breast cancer from Last 3 Months Results * Hepatitis C antibody (11/24/2024 8:23 AM EDT) Pathologist [facility] Hepatitis C Antibody Negative Negative LAB CHEMISTRY METHOD 11/24/2024 11:23 AM EDT [facility] Blood Venous blood specimen / Unknown Venipuncture / Unknown 11/24/2024 8:23 AM EDT 11/24/2024 8:59 AM EDT Patricia Harmon MD LAB BLOOD ORDERA BLES Final Result [facility] [address] [place] [address], [place] [phone] * HIV 1,2 antibody, p24 antigen with reflex to differentiation (11/24/2024 8:23 AM EDT) [facility] HIV Combo AB/AG Negative Negative LAB CHEMISTRY METHOD 11/24/2024 11:24 AM EDT [facility] Blood Venous blood specimen / Unknown Venipuncture / Unknown 11/24/2024 8:23 AM EDT 11/24/2024 8:59 AM EDT Narrative [facility] - 11/24/2024 11:24 AM EDT [...] MD LAB BLOOD ORDERA BLES Final Result [facility] [address] [place] [address], [place] [phone] * (ABNORMAL) Lipid panel with reflex to direct LDL (11/24/2024 8:23 AM EDT) Pathologist [facility] Cholesterol 173 0 - 200 mg/dL LAB CHEMISTRY METHOD 11/24/2024 9:44 AM EDT [facility] Triglycerides 79 0 - 150 mg/dL LAB CHEMISTRY METHOD 11/24/2024 9:44 AM EDT [facility] HDL 53 >=40 mg/dL LAB CHEMISTRY METHOD 11/24/2024 9:44 AM EDT [facility] LDL Calculated 104(H) 0 - 100 mg/dL LAB CHEMISTRY METHOD 11/24/2024 9:44 AM EDT [facility] VLDL Cholesterol [place] 15.8 mg/dL LAB CHEMISTRY METHOD 11/24/2024 9:44 AM EDT [facility] Non HDL Chol. (LDL+VLDL) 120 <145 mg/dL LAB CHEMISTRY METHOD 11/24/2024 9:44 AM EDT [facility] Chol/HDL Ratio 3.3 0.0 - 4.4 LAB CHEMISTRY METHOD 11/24/2024 9:44 AM [facility] Blood Venous blood specimen / Unknown Venipuncture / Unknown 11/24/2024 8:23 AM EDT 11/24/2024 8:59 AM EDT Patricia Harmon MD LAB BLOOD ORDERA BLES Final Result [facility] [address] [place] [address], [place] [phone] * CBC auto differential (11/24/2024 8:23 AM EDT) [facility] WBC 5.6 4.8 - 10.8 K/Health system LAB HEMETOLOGY METHOD 11/24/2024 9:18 AM [facility] RBC 4.30 3.80 - 4.80 M/Health system LAB HEMETOLOGY METHOD 11/24/2024 9:18 AM [facility] Hemoglobin 13.0 11.5 - 16.0 g/dL LAB HEMETOLOGY METHOD 11/24/2024 9:18 AM [facility] Hematocrit 39.0 35.0 - 47.0 % LAB HEMETOLOGY METHOD 11/24/2024 9:18 AM [facility] MCV 90.1 79.0 - 98.0 FL LAB HEMETOLOGY METHOD 11/24/2024 9:18 AM [facility] MCH 30.0 27.0 - 32.0 pcg LAB HEMETOLOGY METHOD 11/24/2024 9:18 AM [facility] MCHC 33.3 32.0 - 37.0 g/dL LAB HEMETOLOGY METHOD 11/24/2024 9:18 AM [facility] RDW 13.1 11.0 - 15.0 % LAB HEMETOLOGY METHOD 11/24/2024 9:18 AM [facility] Platelets 216 130 - 400 K/mcL LAB HEMETOLOGY METHOD 11/24/2024 9:18 AM [facility] MPV 9.8 7.0 - 11.0 FL LAB HEMETOLOGY METHOD 11/24/2024 9:18 AM [facility] NRBC 0.0 <1.0 % LAB HEMETOLOGY METHOD 11/24/2024 9:18 AM [facility] NRBC Absolute 0.00 <0.10 K/Health system LAB HEMETOLOGY METHOD 11/24/2024 9:18 AM [facility] Neutrophils Relative 59.6 % LAB HEMETOLOGY METHOD 11/24/2024 9:18 AM [facility] Lymphocytes Relative 23.1 % LAB HEMETOLOGY METHOD 11/24/2024 9:18 AM [facility] Monocytes Relative 11.2 % LAB HEMETOLOGY METHOD 11/24/2024 9:18 AM [facility] Eosinophils Relative 5.5 % LAB HEMETOLOGY METHOD 11/24/2024 9:18 AM [facility] Basophils Relative 0.4 % LAB HEMETOLOGY METHOD 11/24/2024 9:18 AM [facility] Immature Granulocytes Relative 0.2 % LAB HEMETOLOGY METHOD 11/24/2024 9:18 AM [facility] Neutrophils Absolute 3.35 1.50 - 7.00 K/mcL LAB HEMETOLOGY METHOD 11/24/2024 9:18 AM [facility] Lymphocytes Absolute 1.30 1.00 - 5.00 K/mcL LAB HEMETOLOGY METHOD 11/24/2024 9:18 AM [facility] Monocytes Absolute 0.63 0.20 - 1.00 K/mcL LAB HEMETOLOGY METHOD 11/24/2024 9:18 AM [facility] Eosinophils Absolute 0.31 0.00 - 0.50 K/mcL LAB HEMETOLOGY METHOD 11/24/2024 9:18 AM [facility] Basophils Absolute 0.02 0.00 - 0.20 K/mcL LAB HEMETOLOGY METHOD 11/24/2024 9:18 AM [facility] Immature Granulocytes Absolute 0.01 0.00 - 0.03 K/mcL LAB HEMETOLOGY METHOD 11/24/2024 9:18 AM [facility] Blood Venous blood specimen / Unknown Venipuncture / Unknown 11/24/2024 8:23 AM EDT 11/24/2024 9:01 AM EDT Simone Elkins MD LAB BLOOD ORDERABLES Final Result [facility] [address] [place] [address], [place] [phone] * Iron and TIBC (11/24/2024 8:23 AM EDT) Iron 90 40 - 150 mcg/dL LAB CHEMISTRY METHOD 11/24/2024 9:44 AM EDT [facility] TIBC 315 250 - 450 mcg/dL LAB CHEMISTRY METHOD 11/24/2024 9:44 AM EDT [facility] Iron Saturation 29 15 - 50 % LAB CHEMISTRY METHOD 11/24/2024 9:44 AM EDT [facility] Blood Venous blood specimen / Unknown Venipuncture / Unknown 11/24/2024 8:23 AM EDT 11/24/2024 8:59 AM EDT Simone Elkins MD LAB BLOOD ORDERABLES Final Result [facility] [address] [place] [address], [place] [phone] * Hemoglobin A1c (11/24/2024 8:23 AM EDT) Hemoglobin A1C 5.5 <6.5 % LAB CHEMISTRY METHOD 11/24/2024 11:12 AM EDT [facility] Mean Bld Glu Estim. 111 mg/dL LAB CHEMISTRY METHOD 11/24/2024 11:12 AM EDT [facility] Blood Venous blood specimen / Unknown Venipuncture / Unknown 11/24/2024 8:23 AM EDT 11/24/2024 9:01 AM EDT Patricia Harmon MD LAB BLOOD ORDERA BLES Final Result Performing Organization Address [facility] Co de Phone Number [facility] [address] [place] [address], [place] [phone] * Ferritin (11/24/2024 8:23 AM EDT) Ferritin 20 8 - 252 ng/mL LAB CHEMISTRY METHOD 11/24/2024 9:45 AM EDT [facility] Blood Venous blood specimen / Unknown Venipuncture / Unknown 11/24/2024 8:23 AM EDT 11/24/2024 8:59 AM EDT Simone Elkins MD LAB BLOOD ORDERABLES Final Result Performing Organization Address [facility] Co de Phone Number [facility] [address] [place] [address], [place] [phone] * MG Mammo Breast Specimen (Statistics) (10/10/2024 11:35 AM EST) Narrative [facility] - 10/10/2024 11:35 AM EST This order has been auto-finalized and does not contain a result. us Maria Luz Downs MD IMG BI PROCEDURES Final Result Performing Organization Address [facility] Co de Phone Number [facility]ACS/VR * [...] recommendation. Mammo Location: [facility], [address] [place] [address], [address], . -------- FINAL REPORT -------- Dictated By: Nerissa Aquino Dictated Date: 10/06/2024 09:14 ET Assigned Physician: Nerissa Aquino Reviewed and Electronically Signed By: Nerissa Aquino Signed Date: 10/06/2024 09:18 ET Workstation ID: [id number] Transcribed By: Self Edit Transcribed Date: 10/06/2024 [...] recommendation. Mammo Location: [facility], [address] [place] [address], [address], . -------- FINAL REPORT -------- Dictated By: Nerissa Aquino Dictated Date: 10/06/2024 09:14 ET Assigned Physician: Nerissa Aquino Reviewed and Electronically Signed By: Nerissa Aquino Signed Date: 10/06/2024 09:18 ET Workstation ID: [id number] Transcribed By: Self Edit Transcribed Date: 10/06/2024 [...] Signed Date: 10/10/2024 13:40 ET Workstation ID: [id number] Transcribed By: Self Edit Transcribed Date: 10/10/2024 [...] Signed Date: 10/06/2024 09:14 ET Workstation ID: [id number] Transcribed By: Self Edit Transcribed Date: 10/06/2024 [...] Signed Date: 10/06/2024 09:14 ET Workstation ID: [id number] Transcribed By: Self Edit Transcribed Date: 10/06/2024 08:55 ET us Patricia Harmon MD IMG BI PROCEDURE S Edited Result - Final [...] benign lobule No atypia or neoplasm identified 5 1:29 PM [facility] Comment The paraffin blocks of both specimens were radiographed and no calcifications were identified. The preliminary findings were discussed with Dr. Aquino via secure chat on 10/07/24. Notification of final report was sent on 10/10/24. 1:29 PM [facility] Clinical Information HydroMARK butterfly The biopsy is done for: Coarse round microcalcifications Probability that the target was sampled: High History of previous breast cancer: No History of non-breast cancer: No History of atypical hyperplasia: No History of radiation/chemotherap y: No 1:29 PM [facility] Gross Description A. Breast, Left, [...] 72 hours): 12.5 hours CHEY 1:29 PM EST [facility] Disclaimer Unless otherwise specified, all tissue is 10% NB formalin fixed and paraffin embedded. 1:29 PM EST [facility] Tissue Left breast structure / Unknown 10/06/2024 8:15 AM EST 10/06/2024 11:51 AM EST Tissue specimen (specimen) Left breast structure / Unknown 10/06/2024 8:18 AM EST 10/06/2024 11:51 AM EST Patricia Harmon MD LAB PATHOLOGY OR DERABLES Final Result [facility] [address] [place] [address], * (ABNORMAL) MG Mammo Diagnostic Addl Views [...] recommended. Mammo Location: [facility], [address] [place], [place], [address], . -------- FINAL REPORT -------- Dictated By: Germania Abernathy Dictated Date: 09/23/2024 08:35 ET Assigned Physician: Germania Abernathy Reviewed and Electronically Signed By: Germania Abernathy Signed Date: 09/23/2024 09:14 ET Workstation ID: [id number] Transcribed By: Self Edit Transcribed Date: 09/23/2024 [...] recommended. Mammo Location: [facility], [address] [place] [address], [facility], . -------- FINAL REPORT -------- Dictated By: Germania Abernathy Dictated Date: 09/23/2024 08:35 ET Assigned Physician: Germania Abernathy Reviewed and Electronically Signed By: Germania Abernathy Signed Date: 09/23/2024 09:14 ET Workstation ID: [id number] Transcribed By: Self Edit Transcribed Date: 09/23/2024 08:58 ET us Patricia Harmon MD IM BI PROCEDURE S Final Result * (ABNORMAL) [...] -------- FINAL REPORT -------- Dictated By: Levar Mrecado Dictated Date: 09/15/2024 16:01 ET Assigned Physician: Levar Mercado Reviewed and Electronically Signed By: Levar Mercado Signed Date: 09/15/2024 16:10 ET Workstation ID: [id number] Transcribed By: Self Edit Transcribed Date: 09/15/2024 [...] Resul t from Last 3 Months Insurance [facility] Care Teams Pathology Transcriptionist Relationship Specialty Start Date End Date Patricia Harmon MD [address] [place] [phone] PCP - General Internal Medicine 06/21/24
[2024-12-01 13:09] LABS: Folate 7.8 ng/mL (> or = 4.0); Vitamin B12 536 pg/mL (200-900)
[2024-12-05 03:29] LABS: Zinc 79 mcg/dL (60-130)
[2024-12-05 11:44] LABS: Vitamin A 42 mcg/dL (38-98)
[2024-12-12 16:24] LABS: Vitamin B1 12 nmol/L (8-30)
== END 2024-12-01 09:37 | disposition home or self-care (01) ==
LOC: HO.LAB 09:36
PROVIDERS: PCP Emergency Medicine; Visit Provider Physician Assistant Surgical
DX: E66.9 Obesity, unspecified (principal); Z90.3 Acquired absence of stomach [part of]
CPT/HCPCS: 36415; 80053; 80061; 82306; 82607; 82728; 82746; 83036; 83525; 83540; 84425; 84443; 84590; 84630; 85025; 86140; 99212

== ENCOUNTER 2025-02-28 08:55 | Outpatient (AMB) | payer OTHER, SELFPAY ==
--- OUTSIDE RECORDS SUMMARY | 2025-02-28 09:11 | XMS_ITS | Clinical Summary ---
Author Organization [facility] Address [address] [place] [address] Care Team Providers Care Art History Instructor Name Role Phone Germania Archibald MD Primary Care Provider [phone] Allergies No known active allergies Medications Medication [...] 77 06/09/2024 11:51 AM EDT Temperature 36.6 C (97.8 F) 06/09/2024 11:51 AM EDT Respiratory Rate 18 02/25/2024 4:05 PM EDT [...] Screening (Pap Smear) 2001 Influenza Vaccine (#1) 2025 DTap / Tdap / Td (3 - Td or Tdap) 02/12/2033 02/12/2023, 04/08/2012 Pneumococcal Vaccine Aged Out No long er eligible based on patient's age to complete this topic RSV Ped < 20 months Aged Out No longe r eligible based on patient's age to complete this topic Care Teams Art History Instructor Relationship Specialty Start Date End Date Germania Archibald MD PCP - General Internal Medicine 01/06/22
--- OUTSIDE RECORDS SUMMARY | 2025-02-28 09:11 | XMS_ITS | Clinical Summary ---
Author Organization [facility] Address [address] [place] [address] Phone Care Team Providers Care Filling And Stapling Machine Operator Name Role Phone Patricia Harmon MD Primary Care Pr ovider Allergies No known active allergies Medications No known medications Active Problems Problem Noted Date Diagnosed Date Primary hypertension 06/23/2024 Mixed hyperlipidemia 06/23/2024 Obesity (BMI 30.0-34.9) 06/23/2024 Prediabetes 06/23/2024 Osteoarthritis of lumbar spine with myelopathy 1 08/23/2023 Iron deficiency anemia secon joel to inadequate dietary iron intake 03/21/2022 Encounters Date Type Department Care Team Description 01/26/2025 12:30 PM EDT Office Visit Adult [address] [address] Krys Donaldson PA Annual physical exam (Primary Dx); Iron deficiency anemia secondary to inadequate dietary iron intake; Primary hypertension; Mixed hyperlipidemia; Prediabetes; Obesity (BMI 30.0-34.9) 12/01/2024 11:45 AM EDT Office Visit [facility] Hematology Oncology [address] [place] [address] Simone Elkins MD 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 For example, children's entertainer or elderly care for an older adult? [...] Sign Reading Time Taken Comments Blood Pressure 120/68 01/26/2025 12:26 PM EDT Pulse 78 01/26/2025 12:26 PM EDT Temperature 36.2 C (97.1 F) 01/26/2025 12:26 PM EDT Respiratory Rate 14 01/26/2025 12:2 6 PM EDT Oxygen Saturation 98% 01/26/2025 12: 26 PM EDT Inhaled Oxygen Concentration - - Weight 72.4 kg (159 lb 11.2 oz) 025 12:26 PM EDT Height 152.4 cm (5') 01/26/2025 12:26 PM EDT Body Mass Index 31.19 01/26/2025 12:26 PM EDT Plan of Treatment Upcoming Encounters Date Type Department Care Team (Late st Contact Info) Description 06/01/2025 10:00 AM EDT Office Visit [facility] Hematology Oncology [address] [place] [address] Simone Elkins MD [address] [place] [address] 08/03/2025 9:45 AM EST Office Visit [facility] Medicine [facility] [address] [place] [phone] Patricia Harmon MD [address] [place] [phone] Health Maintenance Due Date Last Done Comments Hepatitis B Vaccines (1 of 3 - 19+ 3-dose series) 1999 Cervical Cancer Screening: HPV 2001 COVID-19 Vaccine ( season) 2024 Hypertension/CHF/CAD Annual BMP Blood Test 06/14/2025 06/14/2024 [...] on patient's age to complete this topic Pneumococcal Vaccine: Pediatrics (0 to 5 Years) and At-Risk Patients (6 to 49 Years) Aged Out No longer eligible based on patient's age to complete this topic RSV Immunization Patients Under 20 months Aged Out No longer eligible based on patient's age to complete this topic Varicella Vaccines Aged Out No longer eligible based on patient's age to complete this topic Medical Devices Implanted Type Area Child Protection Specialist Device Identifier Shelf Expiration Date Model / Serial / Lot Marker Brst Biopsy Site Hydromark - [id number] Implanted:Qty: 1 on 10/06/2024 by Nerissa Aquino MD at [facility] Breast Implants Left: Breast DEVICOR OnShift [id number] 10-T4 / / [id number] Procedures Procedure Name Priority Date/Time Associated Diagnosis Comments HEPATITIS C ANTIBODY Routine 11/24/2024 8:23 AM EDT Need for hepatitis C screening test HIV 1, 2 ANTIBODY, P24 ANTIGEN WITH REFLEX TO DIFFERENTIATION Routine 11/24/2024 8:23 AM EDT Encounter for screening for HIV LIPID PANEL WITH REFLEX TO DIRECT LDL Routine 11/24/2024 8:23 AM EDT Mixed hyperlipidemia MG MAMMO DIGITAL DIAGNOSTIC POST CLIP LEFT Routine 10/06/2024 8:49 AM EST Breast calcifications from Last 3 Months or Most Recently Relevant to Health Maintenance Results * Hepatitis C antibody (11/24/2024 8:23 AM EDT) Hepatitis C Antibody Negative Negative LAB CHEMISTRY METHOD 11/24/2024 11:23 AM EDT [facility] Blood Venous blood specimen / Unknown Venipuncture / Unknown 11/24/2024 8:23 AM EDT 11/24/2024 8:59 AM EDT us Patricia Harmon MD LAB BLOOD ORDERA BLES Final Result Performing Organization Address [facility]/ZIP Co de Phone Number [facility] [address] [place] [address], [place] [phone] * HIV 1,2 antibody, p24 antigen with reflex to differentiation (11/24/2024 8:23 AM EDT) Pathologist [facility] HIV Combo AB/AG Negative Negative LAB CHEMISTRY METHOD 11/24/2024 11:24 AM EDT [facility] Blood Venous blood specimen / Unknown Venipuncture / Unknown 11/24/2024 8:23 AM EDT 11/24/2024 8:59 AM EDT Narrative [facility] - 11/24/2024 11:24 AM EDT This assay is a 4th generation assay allowing for earlier detection of HIV infection by detecting the presence of the HIV-1 p24 antigen as well as the traditional antibodies to HIV type 1 (including group O) and type 2. Use of a 4th generation assay is the current CDC recommendation for HIV screening. us Patricia Harmon MD LAB BLOOD ORDERA BLES Final Result Performing Organization Address City/[facility] Co de Phone Number [facility] [address] [place] [address], [place] [phone] * (ABNORMAL) Lipid panel with reflex to direct LDL (11/24/2024 8:23 AM EDT) Cholesterol 173 0 - 200 mg/dL LAB CHEMISTRY METHOD 11/24/2024 9:44 AM EDT [facility] Triglycerides 79 0 - 150 mg/dL LAB CHEMISTRY METHOD 11/24/2024 9:44 AM EDT [facility] HDL 53 >=40 mg/dL LAB CHEMISTRY METHOD 11/24/2024 9:44 AM EDT [facility] LDL Calculated 104(H) 0 - 100 mg/dL LAB CHEMISTRY METHOD 11/24/2024 9:44 AM EDT [facility] VLDL Cholesterol [place] 15.8 mg/dL LAB CHEMISTRY METHOD 11/24/2024 9:44 AM EDT [facility] Non HDL Chol. (LDL+VLDL) 120 <145 mg/dL LAB CHEMISTRY METHOD 11/24/2024 9:44 AM EDT [facility] Chol/HDL Ratio 3.3 0.0 - 4.4 LAB CHEMISTRY METHOD 11/24/2024 9:44 AM EDT [facility] Blood Venous blood specimen / Unknown Venipuncture / Unknown 11/24/2024 8:23 AM EDT 11/24/2024 8:59 AM EDT us Patricia Harmon MD LAB BLOOD ORDERA BLES Final Result [facility] [address] [place] [address], * MG Mammo Digital Diagnostic Clip Post MG Guide Left (Statistics) (10/06/2024 8:49 AM EST) Anatomical Region Laterality Modality Breast Left Mammography 10/06/2024 9:14 AM EST Impressions 10/06/2024 9:18 AM EST Postprocedure mammography showing biopsy marker to be well positioned in the anterior upper outer left breast. BI-RADS CATEGORY: Waiting for Pathology RECOMMENDATION: See report for recommendation. Mammo Location: [facility], [address] [place] [address], [address], . -------- FINAL REPORT -------- Dictated By: Nerissa Aquino Dictated Date: 10/06/2024 09:14 ET Assigned Physician: Nerissa Aquino Reviewed and Electronically Signed By: Nerissa Aquino Signed Date: 10/06/2024 09:18 ET Workstation ID: [id number] Transcribed By: Self Edit Transcribed Date: 10/06/2024 [...] recommendation. Mammo Location: [facility], [address] [place] [address], [address], . -------- FINAL REPORT -------- Dictated By: Nerissa Aquino Dictated Date: 10/06/2024 09:14 ET Assigned Physician: Nerissa Aquino Reviewed and Electronically Signed By: Nerissa Aquino Signed Date: 10/06/2024 09:18 ET Workstation ID: [id number] Transcribed By: Self Edit Transcribed Date: 10/06/2024 09:14 ET Patricia Harmon MD IMG BI PROCEDURE S Final Result from Last 3 Months or Most Recently Relevant to Health Maintenance Insurance [employer] Care Teams Filling And Stapling Machine Operator Relationship Specialty Start Date End Date Patricia Harmon MD [address] [place] [phone] PCP - General Internal Medicine 06/21/24
--- NOTE | 2025-02-28 09:14 | MHC.OFFVISWM ---
VS Expanded 02/28/25 09:20 BP 122/85 Blood Pressure Location Lt brachial Blood Pressure Position Sitting Pulse 68 Pulse Source Pulse Oximeter Temp 97.3 F Temperature Source Temporal Artery Scan Pulse Oximetry 98 Oxygen Delivery Method Room Air Height 4 ft 11.5 in Weight 149 lb 2 oz BMI 29.6 Body Fat % 34.6 Body Fat Mass 51.6 Fat Free Mass 97.4 Visceral Fat Rating 7.0 Body Water % 46.6 Body Water Mass 69.4 Muscle Mass/Score 92.6 Basal Metabolic Rate/Score 1,338 Intake Visit Reasons: OV PO LSG 03/14/21 Allergies No Known Allergies Allergy (Verified 12/01/24 09:43) Medication List - Last Reconciled 02/28/25 by IVA Fuentes cholecalciferol (vitamin D3) 50 mcg PO DAILY clotrimazole 1% 1 appl topical BID HPI Comments Details: This?is a?44?yo F who is s/p LSG 03/14/2021. Presents for 4yr post op visit. Weight at last visit on 12/01/2024 was 165.8 pounds with a BMI of 32.9. Weight today is 149.2 pounds, representing a 16.6 pound weight loss with a BMI today of 29.6.? No complaints of nausea, emesis, abdominal pain or reflux, or constipation. Very happy with her energy levels. Present meal plan includes: yogurt 2oz chicken and 1oz veg 2oz turkey and 1oz veg 2oz salmon/shrimp and 1oz veg, sometimes a small portion of sweet potato but otherwise tries to keep carbs low this meal plan was created for her by her hop trainer- she is very happy with it tracks her intake on bariatric tracking dang no MVI at last visit gave RightBMI dang info and recommended including additional protein into meal plan such as another shake she had tried a more strict meal plan with 3 shakes/1 bar but did not lose any weight for it Exercise routine includes: 30-40 min on bike 3-4x/week started working with a personal development mentor- even started running intervals (1min run, 30s walk x10) weight training Pt reports problems of excess skin of abdomen. Sometimes gets rashes in the skin folds. Moisture collects in the skin folds and she has to clean frequently to prevent odor or skin breakdown. Skin is very heavy and pulls on her back/shoulders due to the weight of it. Tries to hold excess skin in place with compressive clothing to prevent movement of the excess skin when she is performing activities of daily living. [facility] Medical History Arthritis Back pain BMI 38.0-38.9,adult BMI 40.0-44.9, adult Diaphragmatic hernia GERD (gastroesophageal reflux disease) Hypertension Morbid obesity Shortness of breath Surgical History History of sleeve gastrectomy Hx of tubal ligation Hx of section Family History Mother Diabetes Hypertension Pulmonary emphysema Father Thyroid condition Hypertension Sister No problems noted. Sister No problems noted. Brother No problems noted. Son No problems noted. Son No problems noted. Social History Are you a primary summer child caregiver to a significant other at home: No Do you presently have visiting nurse or other home services: No Alcohol intake: never Patient Tobacco Use Status: Never used Tobacco service: No Current occupational status: employed Assessment & Plan Assessment & Plan (1) History of sleeve gastrectomy: Comment: 03/14/21- LSG Code(s): Z90.3 - Acquired absence of stomach [part of] Category: Surgical (2) Overweight: Code(s): E66.3 - Overweight Category: Medical Plan Pt doing well on current meal plan and exercise regimen. She is very happy with her progress. Goal 137lbs for consideration of skin removal surgery. Continue clotrimazole ointment for rashes of excess skin. Labs reviewed, vitamin D previously replaced and pt taking. RTC 3mo.
[2025-02-28 09:20] VITALS: BP 122/85; PULSE 68; TEMP 36.3; O2SAT 98; BMI 29.6
== END 2025-02-28 09:38 | disposition home or self-care (01) ==
LOC: HO.HBS 08:56
PROVIDERS: PCP Family Medicine; Visit Provider Physician Assistant Surgical
DX: E66.3 Overweight (principal); Z68.29 Body mass index [BMI] 29.0-29.9, adult; Z90.3 Acquired absence of stomach [part of]; Z98.84 Bariatric surgery status
CPT/HCPCS: 99213; G2211

== ENCOUNTER → 2025-02-28 08:55 | Outpatient (BNVA) | payer OTHER, SELFPAY | PROVIDERS: PCP Family Medicine; Visit Provider Physician Assistant Surgical | DX: Z98.84 Bariatric surgery status (principal); Z90.3 Acquired absence of stomach [part of]; E66.3 Overweight | CPT/HCPCS: 99212 ==